=== PATIENT | female | born 1940 | race Hispanic/Latino ===

== ENCOUNTER 2017-05-11 12:35 | Inpatient (IN) | payer MEDICARE ==
[2017-05-11 12:56] LABS: Anion Gap 3 mmol/L (-14-95); pH (Venous) 7.533 (7.35-7.45)
[2017-05-11] MEDS ORDERED: Magnesium Sulfate 2 GM/100 ML BAG ONE (13:08)
--- NOTE | 2017-05-11 13:20 | RAD ---
PORTABLE CHEST 1 VIEW: DATE: 05/11/17. TIME: 12:28 p.m. HISTORY: Shortness of breath, weakness, loss of appetite, diabetes, COPD. FINDINGS: Comparison is made with the exams of 10/26/16, 12/25/15, and 10/08/15. The heart size is normal. The lungs are expanded with stable chronic changes. No focal areas of con solidation, pneumothorax, romana pulmonary edema, or pleural effusions are seen. IMPRESSION: No radiographic evidence of acute cardiopulmonary process. POS: JENIFERH
[2017-05-11 13:42] LABS: #Basophils 0.1 thou/uL (0.0-0.2); #Eosinphils 0.1 thou/uL (0.0-0.7); %Basophils 0.4 % (0.0-1.0); %Eosinophils 0.4 % (0.0-10.0); %Lymphocytes 15.5 % (21.0-51.0); %Monocytes 7.8 % (0.0-10.0); Hematocrit 32.2 % (36.0-47.0); Mean Platelet Volume 8.8 fL (7.4-10.4); Red Blood Cell (RBC) Count 3.18 mill/uL (4.20-5.40); White Blood Cell (WBC) Count 13.2 thou/uL (4.8-10.8)
[2017-05-11 13:47] LABS: Prothrombin Time 12.8 SEC (12.0-14.7)
[2017-05-11 14:01] LABS: ALT (SGPT) 9 U/L (8-55); AST (SGOT) 24 U/L (5-34); Alkaline Phosphatase 76 U/L (40-150); Anion Gap 13 mmol/L (10-20); BUN (Urea Nitrogen) 11 mg/dL (9.8-20.1); Bilirubin, Total 0.4 mg/dL (0.2-1.2); Calc. Creatinine Clearance 0 mL/min (70-130); Calcium 9.7 mg/dL (7.8-10.44); Carbon Dioxide 34 mmol/L (23-31); Chloride 82 mmol/L (98-107); Estimated GFR-MDRD Greater than 90; Globulin 3.4 g/dL (2.4-3.5); Protein, Total 7.3 g/dL (6.0-8.3)
[2017-05-11 14:06] LABS: Troponin I Less than 0.010 ng/mL (< 0.028)
--- NOTE | 2017-05-11 15:25 | CT ---
CTA CHEST WITH 3D VOLUME RENDERING: CLINICAL HISTORY: Dyspnea. FINDINGS: There is no evidence of a significant filling defect of the pulmonary arterial system. There is a gr ouping of reticulonodular/ground glass densities of the left upper lobe. Subpleural nodularity is se en at the posterior right upper lobe. There are a few linear areas of hypoattenuating artifact. The re is a wedge-shaped opacification of the left upper lobe, favoring scar. There is pulmonary emphyse ma. No effusion or pneumothorax. Scattered vascular disease is present, including coronary artery c alcium. There are small foci of hyperdensity of the spleen, nonspecific, limited by phase of enhance ment and small size. Scattered osseous degenerative changes are present. IMPRESSION: 1. No large central pulmonary embolus. 2. Scattered nodularity of the pulmonary parenchyma bilaterally, which could be on the basis of atyp ical pneumonia. Given nodularity, underlying neoplastic process cannot be excluded and, therefore, s hort-term followup is recommended to confirm resolution. This may be performed at 2 to 3 months. 3. Pulmonary emphysema. POS: TINO
[2017-05-11 16:56] LABS: Troponin I Less than 0.010 ng/mL (< 0.028)
[2017-05-11] MEDS ORDERED: ISOVUE-370 76%-LOCM 1 ML ONE (17:04)
[2017-05-11 17:07] LABS: Bacteria/HPF 4+ HPF (None Seen); Bilirubin Negative (Negative); Blood, Urine Trace (Negative); Glucose, Urine (Dipstick) Negative (Negative); Ketone, Urine Negative (Negative); Nitrite Positive (Negative); Protein, Urine (Dipstick) Negative (Neg-Trace); RBC/HPF 0-3 HPF (0-3); Squamous Epithelial None Seen HPF (0-3); Urobilinogen 0.2 mg/dL (0.2-1.0)
[2017-05-11 17:18] LABS: Hyaline Casts/LPF 0-3 HYALINE CAST LPF (0-3 Hyaline)
[2017-05-11 19:40] LABS: Troponin I Less than 0.010 ng/mL (< 0.028)
[2017-05-11 20:44] VITALS: BMI 24.2
[2017-05-11] MEDS ORDERED: Ondansetron ODT 4 MG TAB PO PRN (21:51)
[2017-05-11] MEDS ORDERED: Dextrose 50% Abboject 50 ML SYRINGE SLOW IVP PRN (21:51)
[2017-05-11] MEDS ORDERED: Dextrose 5% in Water 1,000 ML IV PRN (21:51)
[2017-05-11] MEDS ORDERED: HumaLOG 300 UNITS/3 ML VIAL SC PRN ×2 (21:51)
[2017-05-11] MEDS ORDERED: Sodium Chloride 0.9% 1,000 ML IV SCH (21:51)
[2017-05-11] MEDS ORDERED: Ondansetron HCl/PF 4 MG/2 ML Vial IVP PRN (21:51)
[2017-05-11] MEDS ORDERED: Insulin Detemir 100 UNITS/ML 20 UNITS in Pre-Filled Syringe 1 EACH SC SCH (22:00)
[2017-05-11] MEDS: Acetaminophen 325 MG TAB PO PRN (22:11)
[2017-05-11 22:58] LABS: Anion Gap 10 mmol/L (10-20); BUN (Urea Nitrogen) 11 mg/dL (9.8-20.1); Calc. Creatinine Clearance 74 mL/min (70-130); Calcium 9.1 mg/dL (7.8-10.44); Carbon Dioxide 37 mmol/L (23-31); Chloride 85 mmol/L (98-107); Estimated GFR-MDRD Greater than 90
[2017-05-11 23:03] LABS: Troponin I Less than 0.010 ng/mL (< 0.028)
[2017-05-12 00:01] LABS: Osmolality, Urine 161 mOsm/kg (300-900)
[2017-05-12 00:12] LABS: Sodium, Urine Less than 20 mmol/L (Not Available)
--- NOTE | 2017-05-12 01:29 | HP-2 ---
1CODE STATUS: FULL. PRIMARY CARE PHYSICIAN: Kosta Mcpherson MD ATTENDING: Easton Espino MD RESIDENT: Mar Mcpherson MD HISTORIAN: Patient, , and daughter. SPECIALIST: Dr. Sharp of Pulmonology. CHIEF COMPLAINT: Not feeling well. 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 Per the patient's for the past 3 days, she has just been weak, not been herself, shaky, and has had decreased appetite. reports that over the past few days, the patient has also been using her albuterol inhaler more frequently. Per previous discharge summary in November with hospital followup at our clinic, the patient was prescribed Brovana; however, states that they still have not picked this up due to financial reasons. The patient is typically on 2 liters nasal cannula at baseline, however, has had progressive worsening of shortness of breath and was found to be hypoxic at 67% on 2 liters in the emergency department. The patient denies any fevers, nausea, vomiting, diarrhea , chest pain, headache, or dysuria; however, she does note a nonproductive cough. The patient has had multiple hospitalizations due to COPD exacerbations with most recent one being in November of this year requiring BiPAP. states that she has required intubation for COPD onetime back in 2011. The patient and family deny any sick contacts and that she has been taking all of her medications as directed. In the ER, the patient received: 1. DuoNebs. 2. Magnesium sulfate 2 grams IV. 3. Solu-Medrol 80 mg IV. PAST MEDICAL HISTORY: 1. End-stage chronic obstructive pulmonary disease, on 2 liters via nasal cannula at home. 2. Insulin-dependent type 2 diabetes. 3. Chronic urinary retention with indwelling Scruggs catheter. 4. Chronic macrocytic anemia. 5. Hyperlipidemia. 6. Paroxysmal sinus tachycardia. PAST SURGICAL HISTORY: 1. Cholecystectomy. 2. Partial colectomy. 3. Abdominal hernia repair. 4. x3. ALLERGIES: No known drug allergies. MEDICATIONS: 1. Lantus 20 units subcu b.i.d. 2. Simvastatin 20 mg p.o. at bedtime. 3. Albuterol inhaler p.r.n. 4. Spiriva inhaler daily. 5. VESIcare 10 mg p.o. daily. FAMILY HISTORY: Noncontributory. SOCIAL HISTORY: The patient is known to be a former smoker with a 50-[id number]-epkr history but states she quit approximately 10 years ago. The patient denies any alcohol or illicit drug use and is currently and has three children. REVIEW OF SYSTEMS: A 12-point review of systems including general, eyes, ENT, respiratory, CV, GI, , skin, musculoskeletal, neuro, and psych are all negative except for pertinent positives mentioned in the HPI. PHYSICAL EXAMINATION: VITAL SIGNS: Blood pressure 130/72, pulse 112, respiratory rate 24, temperature 99.1, pulse ox 92% on 3 liters, current weight 54 kg. GENERAL: Alert, oriented x3, in no apparent distress. Well-developed, appropriate, interactive. EYES: PERRLA, EOMI. ENT: Tympanic membranes pearly hidalgo without bulging or erythema. Oropharynx within normal. NECK: Supple. No lymphadenopathy. CARDIOVASCULAR: Tachycardia, no murmurs or gallops. Radial pulses 2+, pedal pulses 2+. RESPIRATORY: Minimal air movement bilaterally. No retractions. No wheezing noted. ABDOMEN: Soft, nontender to palpation. Bowel sounds x4. EXTREMITIES: No cyanosis or edema. SKIN: No cyanosis or lesions. MUSCULOSKELETAL: Structure within normal, tone within normal. NEUROLOGIC: No focal deficits. Sensation within normal. PSYCHIATRIC: Appropriate. LABORATORY DATA: Hemoglobin 10.4, hematocrit 32.2, MCV 101. White count 13.2, platelets 329. Sodium 125, potassium 4.4, chloride 32, bicarbonate 34, BUN 11, creatinine 0.53 , glucose 129. Calcium 9.7, serum total protein 7.3, albumin 3.9, AST 24, ALT 9, alkaline phosphatase 76, total bilirubin 0.4. CK-MB 9.5, troponin less than 0.01. VBG showed pH of 7.53, pCO2 of 42.4, and a pO2 of 54.5. D-dimer 0.62. EKG shows sinus tachycardia. Chest x-ray shows hyperinflation with no acute process. CTA showed no pulmonary embolism with wedge-shaped opacification of the left upper lobe, likely a scar, as well as scattered nodularities of the pulmonary parenchyma bilaterally, could be indicative of atypical pneumonia. Given the nodularity, an underlying neoplasm etiology cannot be ruled out. ASSESSMENT AND PLAN: This is a 76-year-old female who presents with: 1. Acute on chronic hypercapnic and hypoxic respiratory failure secondary to chronic obstructive pulmonary disease exacerbation versus atypical pneumonia. The patient was given DuoNebs, magnesium sulfate, and Solu-Medrol in the ED. We will start the patient on scheduled DuoNebs and continue prednisone p.o. We will also add Levaquin. This is likely a chronic obstructive pulmonary disease exacerbation as the patient has end-stage chronic obstructive pulmonary disease with recurrent hospitalizations for exacerbations. In addition, the patient has been out of her Spiriva inhaler and has only been using her albuterol. As we are continuing DuoNeb treatments, we will hold her home Spiriva and start Brovana. Case management will be consulted for financial assistance for inhaler medication. 2. Sepsis secondary to acute on chronic hypercapnic and hypoxic respiratory failure versus urinary tract infection. The patient has a chronic indwelling Scruggs and UA had not been done. We will obtain UA, urine and blood cultures. The patient was septic with tachycardia at 112, tachypnea at 24, and an elevated white count of 13.2. We will treat with Levaquin and give 1 liter bolus of normal saline. 3. Hyponatremia. The patient with asymptomatic hyponatremia with a sodium of 125, likely secondary to polydipsia. The patient reports drinking about eight 20 ounce cups of water a day. We will obtain urine studies and give 1 liter bolus of normal saline. We will closely monitor sodium to ensure no rapid correction. We will fluid restrict to 1500 mL. 4. Elevated CK-MB. The patient is asymptomatic and denies any chest pain or palpitations. Does not have any acute changes on EKG. We will continue to trend and monitor. 5. Insulin-dependent type 2 diabetes. We will continue the patient on home regimen of Lantus 20 units b.i.d. We will place the patient on moderate sliding scale insulin with Accu-Cheks a.c. and at bedtime. 6. Chronic macrocytic anemia. The patient has had a previous workup which has been negative. 7. Hyperlipidemia. We will continue the patient's home simvastatin. 8. Diet: Consistent carbohydrates with fluid restriction at 1500 mL 9. Prophylaxis. Lovenox. 10. Code status: FULL. DISPOSITION: The patient admitted under inpatient status for anticipated length of stay greater than 2 midnights pending clinical course. Symptomatic medications will be provided. History and physical exam, as well as management, discussed with Dr. Espino. KAYLA
[2017-05-12 05:05] LABS: #Lymphocytes 1.3 thou/uL (1.20-3.40); #Monocytes 0.7 thou/uL (0.11-0.59); #Neutrophils 7.1 thou/uL (1.40-6.50); %Eosinophils 0.1 % (0.0-10.0); %Lymphocytes 13.9 % (21.0-51.0); %Monocytes 7.7 % (0.0-10.0); Hematocrit 31.9 % (36.0-47.0); Mean Platelet Volume 7.6 fL (7.4-10.4); White Blood Cell (WBC) Count 9.1 thou/uL (4.8-10.8)
[2017-05-12 05:14] LABS: Anion Gap 9 mmol/L (10-20); BUN (Urea Nitrogen) 11 mg/dL (9.8-20.1); Calc. Creatinine Clearance 74 mL/min (70-130); Calcium 8.8 mg/dL (7.8-10.44); Carbon Dioxide 35 mmol/L (23-31); Chloride 89 mmol/L (98-107); Estimated GFR-MDRD Greater than 90
[2017-05-12] MEDS: Acetaminophen 325 MG TAB PO PRN (06:14)
--- NOTE | 2017-05-12 06:20 | HP ---
CHIEF COMPLAINT: Not feeling well. HISTORY OF PRESENT ILLNESS: This is a 76-year-old female with past history of COPD who presents with 3-day history of feeling weak, decreased appetite with worsening shortness of breath and cough for which she came into the ED. In the ED, she was found to be in mild respiratory distress and given nebs, Solu- Medrol and magnesium and subsequently admitted to our service. Currently, she is still slightly short of breath and feels improved. She denies chest pain, headaches, vision changes, fever, but does endorse some chills. Denies sick contacts and she does tell me that she ran out of one or two of her inhalers recently. REVIEW OF SYSTEMS: All other systems reviewed and are negative with the exception of some musculoskeletal back pain. PAST MEDICAL HISTORY: Significant for COPD, chronic urinary retention with indwelling Scruggs, insulin-dependent diabetes mellitus, hyperlipidemia, anemia, solitary pulmonary nodule. PAST SURGICAL HISTORY: Cholecystectomy, partial colectomy. ALLERGIES: No known drug allergies. FAMILY HISTORY: Noncontributory. SOCIAL HISTORY: She has a [id number] history. Denies ethanol or drug use. MEDICATIONS: Lantus, simvastatin, ProAir, Spiriva, VESIcare, and she ran out Brovana. PHYSICAL EXAMINATION: VITAL SIGNS: Most recent, temperature 98.6, pulse 103, respirations 18, O2 sat 96% on 2 liters, blood pressure 112/58. GENERAL: She is in no acute distress and is conversant in sentences. HEENT: Eyes without icterus or injection. Pupils equal, round, reactive to light. Normal pinna appears. Nares patent. Moist mucous membranes. Nasal cannula in place. NECK: Trachea midline and mobile. CARDIOVASCULAR: Tachycardic, regular rhythm without murmur. No peripheral edema. LUNGS: She has slightly increased work of breathing with mild accessory muscle use. Most significantly, she has very poor air movement, minimal crackles in the left base. No wheezing. GASTROINTESTINAL: Bowel sounds positive. Nontender to palpation. No palpable organomegaly. Previous scar well-appearing. GENITOURINARY: Scruggs catheter in place. MUSCULOSKELETAL: Without obvious deformity, contracture or fracture or joint swelling. SKIN: Warm and dry with some senile purpura. NEUROLOGIC: Cranial nerves II-XII intact and symmetric. Motor 5/5 in upper and lower extremities. Sensation by light touch throughout. PSYCHIATRIC: Alert and oriented x2. She is unsure of the year. Mood and affect appropriate for current medical conditions. LABORATORY DATA: White count 13.2, hemoglobin 10.4, platelets of 329. D-dimer 0.62. A pH on blood gas 7.533, CO2 of 42. Chemistry: Sodium 125, potassium 4.4, chloride 82, bicarbonate 34, creatinine 0.53, glucose 129. LFTs normal. Troponin negative x2. Chest x-ray with no radiographic evidence of acute pulmonary process. CT chest and thorax with no large central pulmonary embolus ; scattered nodularity of the pulmonary parenchyma bilaterally, which could be on the basis of atypical pneumonia given nodularity underlying neoplastic process cannot be excluded and therefore short term followup is recommended to confirm resolution is may be performed in 2 to 3 months. Pulmonary emphysema. ASSESSMENT AND PLAN: This is a 76-year-old female with: 1. Acute hypoxic respiratory failure secondary to chronic obstructive pulmonary disease exacerbation. We will continue steroids, DuoNebs and home control medications, titrate O2 denies 94%. Repeat blood gas in the morning. 2. Diabetes mellitus, sliding scale while she is in house. 3. Hyperlipidemia. Continue simvastatin. 4. Solitary pulmonary nodule/changes on the CT scan, may follow up with Pulmonology who is seeing her as an outpatient. 5. Anemia appears to be stable. Appropriate workup to be ordered. 6. Deep venous thrombosis prophylaxis with lovenox. 7. Gastrointestinal prophylaxis with diet. MTDD
[2017-05-12] MEDS ORDERED: Sodium Chloride 0.9% 1,000 ML IV SCH ×2 (06:30)
[2017-05-12] MEDS: Arformoterol 15 MCG/2 ML NEB NEB SCH ×2 (08:05→18:26)
--- NOTE | 2017-05-12 08:32 | PDOC.FM ---
- Subjective Subjective: Pt denies any acute events overnight. Patient denies any fevers or chills. Says she is having some back pain this morning and wants to sit up in the chair. Denies any nausea, vomiting, diarrhea, constipation. Denies any chest pain. Denies SOB. Pt doing better from yesterday. - Objective MAR Reviewed: Yes Vital Signs & Weight: Vital Signs (12 hours) Temp Pulse Resp BP Pulse Ox 05/12/17 07:21 100 05/12/17 07:17 111 H 20 94 L 05/12/17 04:00 98.0 F 110 H 20 97/49 L 100 05/12/17 01:58 104 H 18 100 05/12/17 00:00 98.2 F 100 18 109/54 L 99 05/11/17 23:17 96 18 99 05/11/17 22:44 99 05/11/17 21:51 99 Weight Weight 53.977 kg I&O: 05/11/17 05/12/17 05/13/17 06:59 06:59 06:59 Intake Total 1800 Output Total 1000 Balance 800 Result Diagrams: 05/12/17 04:53 05/12/17 04:53 EKG Reviewed by me: Yes (sinus tachycardia) Radiology Reviewed by me: Yes Radiology: CT chest: No PE, wedge-shaped opac of LT upper lobe, scattered nodularity of pulm parenchyma bilaterally <Tai Dillard - Last Filed: 05/12/17 08:30> - Objective Vital Signs & Weight: Vital Signs (12 hours) Temp Pulse Resp BP Pulse Ox 05/12/17 10:48 112 H 20 05/12/17 07:21 100 05/12/17 07:17 111 H 20 94 L 05/12/17 04:00 98.0 F 110 H 20 97/49 L 100 05/12/17 01:58 104 H 18 100 05/12/17 00:00 98.2 F 100 18 109/54 L 99 05/11/17 23:17 96 18 99 Weight Weight 53.977 kg I&O: 05/11/17 05/12/17 05/13/17 06:59 06:59 06:59 Intake Total 1800 Output Total 1000 Balance 800 Result Diagrams: 05/12/17 04:53 05/12/17 04:53 <Ori Anguiano - Last Filed: 05/12/17 11:17> Phys Exam - Physical Examination HEENT: PERRLA Neck: no nodes, no JVD, supple Respiratory: no wheezing, no rales, no rhonchi Decreased breath sounds Cardiovascular: RRR, no significant murmur, no rub Gastrointestinal: soft, non-tender, no distention, positive bowel sounds Musculoskeletal: no edema, pulses present Neurological: non-focal, normal sensation Psychiatric: normal affect, A&O x 3 Skin: no rash <Tai Dillard - Last Filed: 05/12/17 08:30> Dx/Plan (1) UTI (urinary tract infection) due to urinary indwelling See catheter Code(s): T83.511A - I/I REACT D/T INDWELLING URETHRAL CATHETER, INIT; N39.0 - URINARY TRACT INFECTION, SITE NOT SPECIFIED Status: Acute Plan: Urine cx grew out Proteus. Likely related to see catheter -Will switch out see. -Levaquin for COPD is also adquate for coverage at this time. Will await sensitivities and adjust abx as needed. -Pt afebrile -Blood cx-NGTD (2) Acute and chronic respiratory failure with hypercapnia Code(s): J96.22 - ACUTE AND CHRONIC RESPIRATORY FAILURE WITH HYPERCAPNIA Status: Acute Plan: Requiring O2 at this time. Requiring 3 L. will decrease it as pt is oversaturated. -Duonebs antonella and prn for SOB -Levaquin and Prednisone for COPD exacerbation. \ (3) Hyponatremia Code(s): E87.1 - HYPO-OSMOLALITY AND HYPONATREMIA Status: Acute Plan: Getting NS bolus this morning -will continue NS@100 -Will continue to trend with daily BMP (4) COPD exacerbation Code(s): J44.1 - CHRONIC OBSTRUCTIVE PULMONARY DISEASE W (ACUTE) EXACERBATION Status: Acute Plan: -Duonebs antonella, Levaquin and Prednison -Started back on Brovana inhaler -Case managament consulted to help with finding financial assistance for Brovana inhaler on discharge (5) Chronic indwelling See catheter Code(s): Z92.89 - PERSONAL HISTORY OF OTHER MEDICAL TREATMENT Status: Chronic Plan: -Will switch out see catheter today. (6) IDDM (insulin dependent diabetes mellitus) Code(s): E11.9 - TYPE 2 DIABETES MELLITUS WITHOUT COMPLICATIONS; Z79.4 - TRANSFER STATION OPERATOR (CURRENT) USE OF INSULIN Status: Chronic Plan: Started on home regimen of 20u Lantus BID -Mild SSI and accuchecks AC/HS -Blood sugars under control at this time (7) Macrocytic anemia Code(s): D53.9 - NUTRITIONAL ANEMIA, UNSPECIFIED Status: Chronic Plan: Folate and B12 were WNL at previous hospitilizations. Will not repeat at this time. -Will continue to monitor. No acute blood loss and asx at this time. (8) Sinus tachycardia Code(s): R00.0 - TACHYCARDIA, UNSPECIFIED Status: Chronic Plan: Has hx of sinus tachycardia noted in past visits -On tele. Will continue to monitor -BP a little low could be causing tachy. Fluid bolus x1 this Am (9) Generalized weakness Code(s): R53.1 - WEAKNESS Status: Acute Plan: PT/OT consulted and will assess and tx -Likely may need a stint of rehab or snf. Case management consulted and will help with placement <Tai Dillard - Last Filed: 05/12/17 08:30> Attending Addendum - Attending Addendum I personally evaluated the patient and discussed the management with Dr. Dillard. I agree with the History, Examination, Assessment and Plan documented above with any addition or exceptions noted below. Patient continues to report feeling weak. She has multiple active conditions that could be causing this. She has evidence of infiltrate on lung CT, and this may be causing a COPD exacerbation that we are in the process of treating. She has history of a lung nodule being followed by Pulm that could be complicating picture, though CT does not show evidence of that .Will need repeat imaging once her infiltrate resolves. She has also been found to have a catheter associated UTI due to Proteus infection that is a result of her chronic outpatient indwelling see catheter. We will change that catheter today. Finally, patient having hyponatremia and labs point to a hypovolemic hypoosmolar hyponatremia. We are giving her gentle fluids and will trend to ensure a non rapid correction. Expect several day hospitalization. <Ori Anguiano - Last Filed: 05/12/17 11:17>
[2017-05-12] MEDS ORDERED: FLU VACC TS2017-18 (>65YR) 0.5 ML SYRINGE IM ONE (09:00)
[2017-05-12] MEDS: predniSONE 20 MG TAB PO SCH (09:46)
[2017-05-12] MEDS: TROSPIUM 20 MG TABLET PO SCH ×2 (09:46→21:11)
[2017-05-12] MEDS: Insulin Detemir 100 UNITS/ML 20 UNITS in Pre-Filled Syringe 1 EACH SC SCH (09:46)
[2017-05-12] MEDS: Enoxaparin Sodium 40 MG/0.4 ML SYRINGE SC SCH (09:47)
[2017-05-12] MEDS: Sodium Chloride 0.9% 1,000 ML IV SCH ×2 (10:43→23:54)
[2017-05-12] MEDS ORDERED: cefTRIAXone\\ROCEPHIN 1 GM in Sodium Chloride 0.9% 100 ML IVPB SCH (11:00)
[2017-05-12] MEDS ORDERED: cefTRIAXone\\ROCEPHIN 1 GM, Syringe 0.4 ML in Sterile Water 9.6 ML SLOW IVP SCH (11:00)
--- NOTE | 2017-05-12 14:27 | PQF ---
CLINICAL DOCUMENTATION IMPROVEMENT CLARIFICATION FORM: ICD-10 Updated PLEASE DO AN ADDENDUM TO THE PROGRESS NOTE WITH ANY DOCUMENTATION UPDATES OR ADDITIONS AND CARRY THROUGH TO DC SUMMARY. THANK YOU. DATE: 05/12 ATTN: DR. ANGELITA CONNER/ DR LORENZO CESPEDES Please exercise your independent, professional judgment in responding to the clarification form. Clinical indicators are provided on the bottom of this form for your review Please check appropriate box(s): [ ] Pneumonia secondary to (specify organism / underlying disease) [ ] Simple Pneumonia (community acquired - nosocomial) [ ] Pneumonia of unknown etiology [x] Other diagnosis COPD excacerbation [ ] Unable to determine [ ] Pneumonia RESOLVED [ ] Pneumonia RULED OUT For continuity of documentation, please document condition throughout progress notes and discharge summary. Thank You. CLINICAL INDICATORS - SIGNS / SYMPTOMS / LABS ER PRESENTATION 05/11: EVALUATION FOR SOB 02 SAT ON 2L: 67%, NRB PLACED : 100% SON NOTES PT HAS HAD GONZALEZ FOR PAST MONTH & HAS HAD TROUBLE BREATHING PHYSICIAN H&P DOCUMENTATION 05/11: ASSESSMENT /PLAN: 1. A/C HYPERCAPNIC/ HYPOXIC RESPIRATORY FAILURE 2/2 COPD EXACERBATION VS ATYPICAL PNEUMONIA ATTENDING PHYSICIAN ADDENDUM TO PN DATED 05/12: SHE HAS EVIDENCE OF INFILTRATE ON LUNG CT, & THIS MAY BE CAUSING A COPD EXACERBATION THAT WE ARE IN THE PROCESS OF TREATING. ....WILL NEED REPEAT IMAGING ONCE HER INFILTRATE RESOLVES CTA CHEST/THORAX 05/11: SCATTERED NODULARITY OF PULMONARY PARENCHYMA BILATERALLY, WHICH COULD BE BASIS OF ATYPICAL PNEUMONIA WBC: 13.2 (05/11, ADMIT) RISK FACTORS: ES COPD ON HOME 02 ACUTE ON CHRONIC RESPIRATORY FAILURE TREATMENTS: IV ANTIBIOTICS (LEVAQUIN 05/11 - PRESENT; ROCEPHIN STARTED 05/12) SUPPLEMENTAL OXYGEN (2-3L NC 05/11 - PRESENT) RESPIRATORY TREATMENTS (DUONEB 05/11 - PRESENT; BROVANA NEB 05/12 STARTED) THANK YOU! Danae (This form is maintained as a part of the permanent medical record) 2014 [employer]. All Rights Reserved Danae Montenegro RN, BSN [email or web address] Office: [phone] [facility]
--- NOTE | 2017-05-12 14:39 | PQF ---
CLINICAL DOCUMENTATION IMPROVEMENT CLARIFICATION FORM: ICD-10 Updated PLEASE DO AN ADDENDUM TO THE PROGRESS NOTE WITH ANY DOCUMENTATION UPDATES OR ADDITIONS AND CARRY THROUGH TO DC SUMMARY. THANK YOU. DATE: 05/12 ATTN: DR. ANGELITA CONNER/ DR. LORENZO CESPEDES Please exercise your independent, professional judgment in responding to the clarification form. Clinical indicators are provided on the bottom of this form for your review Please check appropriate box(s) to clarify if the following diagnosis has been ruled in or ruled out: SEPSIS [ x ] Ruled in diagnosis [ ] Continue to treat [ x ] Resolved [ ] Ruled out diagnosis [ ] Other diagnosis [ ] Unable to determine For continuity of documentation, please document condition throughout progress notes and discharge summary. Thank You. CLINICAL INDICATORS - SIGNS / SYMPTOMS / LABS PHYSICIAN H&P DOCUMENTATION 05/11: ASSESSMENT/PLAN: 2. SEPSIS 2/2 ACUTE HYPOXIC RESPIRATORY FAILURE 2/2 COPD EXACERBATION VS ATYPICAL PNEUMONIA. .... WILL ADD LEVAQUIN TO COVER FOR BOTH COPD & ATYPICAL PNEUMONIA NO FURTHER DOCUMENTATION OF SEPSIS ER PRESENTATION 05/11: WBC 13.2 HR: 109-114 RR: 23-28 SAT ON 2L NC: 67%, PLACED ON NRB: 100% RISK FACTORS: ACUTE HYPOXIC RESPIRATORY FAILURE COPD EXACERBATION VS ATYPICAL PNEUMONIA TREATMENTS: IV ANTIBIOTICS (IV LEVAQUIN 05/11 - PRESENT; IV ROCEPHIN STARTED 05/12) SUPPLEMENTAL OXYGEN (2-3L NC 05/11 - PRESENT) THANK YOU! Danae (This form is maintained as a part of the permanent medical record) 2014 [employer]. All Rights Reserved Danae Montenegro RN, BSN [email or web address] Office: [phone] [facility]
[2017-05-12 16:47] LABS: Anion Gap 11 mmol/L (10-20); BUN (Urea Nitrogen) 10 mg/dL (9.8-20.1); Calc. Creatinine Clearance 64 mL/min (70-130); Calcium 8.8 mg/dL (7.8-10.44); Carbon Dioxide 35 mmol/L (23-31); Chloride 95 mmol/L (98-107); Estimated GFR-MDRD Greater than 90
[2017-05-12 18:17] LABS: Bilirubin Negative (Negative); Blood, Urine Small (Negative); Glucose, Urine (Dipstick) Negative (Negative); Ketone, Urine Negative (Negative); Nitrite Negative (Negative); Protein, Urine (Dipstick) Negative (Neg-Trace); Urobilinogen 0.2 mg/dL (0.2-1.0)
[2017-05-12 18:28] LABS: Bacteria/HPF 1+ HPF (None Seen); Hyaline Casts/LPF 7-10 HYALINE CAST LPF (0-3 Hyaline); RBC/HPF 0-3 HPF (0-3); Squamous Epithelial None Seen HPF (0-3)
[2017-05-12] MEDS ORDERED: Simvastatin 20 MG TAB PO SCH (21:00)
[2017-05-12] MEDS ORDERED: Insulin Detemir 100 UNITS/ML 20 UNITS in Pre-Filled Syringe 1 EACH SC SCH (21:00)
[2017-05-13] MEDS: Acetaminophen 325 MG TAB PO PRN (05:25)
[2017-05-13 05:48] LABS: BUN (Urea Nitrogen) 9 mg/dL (9.8-20.1); Calc. Creatinine Clearance 84 mL/min (70-130); Calcium 8.3 mg/dL (7.8-10.44); Estimated GFR-MDRD Greater than 90
[2017-05-13 05:51] LABS: #Lymphocytes 1.6 thou/uL (1.20-3.40); #Neutrophils 6.3 thou/uL (1.40-6.50); %Basophils 0.1 % (0.0-1.0); %Eosinophils 0.4 % (0.0-10.0); %Lymphocytes 18.3 % (21.0-51.0); %Monocytes 10.7 % (0.0-10.0); Hematocrit 29.4 % (36.0-47.0); Mean Platelet Volume 7.2 fL (7.4-10.4); Red Blood Cell (RBC) Count 2.77 mill/uL (4.20-5.40)
[2017-05-13 05:57] LABS: Anion Gap 9 mmol/L (10-20); Carbon Dioxide 35 mmol/L (23-31); Chloride 97 mmol/L (98-107)
[2017-05-13] MEDS: Arformoterol 15 MCG/2 ML NEB NEB SCH (07:46)
[2017-05-13] MEDS: Insulin Detemir 100 UNITS/ML 20 UNITS in Pre-Filled Syringe 1 EACH SC SCH (08:36)
[2017-05-13] MEDS: TROSPIUM 20 MG TABLET PO SCH (08:36)
[2017-05-13] MEDS: Enoxaparin Sodium 40 MG/0.4 ML SYRINGE SC SCH (08:36)
[2017-05-13] MEDS: predniSONE 20 MG TAB PO SCH (08:37)
--- NOTE | 2017-05-13 08:50 | PDOC.FM ---
- Subjective Subjective: Pt still reports being weak this morning. States though she doesn't want to get up an walk. Talked to her about rehab and doesn't want to go to rehab. Says pain is being controlled. Denies any fevers or chills. Denies any acute events overnight. - Objective MAR Reviewed: Yes Vital Signs & Weight: Vital Signs (12 hours) Temp Pulse Resp BP Pulse Ox 05/13/17 07:46 97 05/13/17 07:45 110 H 16 05/13/17 07:32 97.1 F L 117 H 16 96 05/13/17 04:00 98.0 F 109 H 16 118/56 L 99 05/13/17 02:14 113 H 24 H 96 05/12/17 22:12 109 H 20 99 Weight Weight 54.885 kg I&O: 05/12/17 05/13/17 05/14/17 06:59 06:59 06:59 Intake Total 1800 3010 Output Total 1000 6750 Balance 800 -3740 Result Diagrams: 05/13/17 05:24 05/13/17 05:24 <Tai Dillard - Last Filed: 05/13/17 08:52> - Objective Vital Signs & Weight: Vital Signs (12 hours) Temp Pulse Resp BP Pulse Ox 05/13/17 07:46 97 05/13/17 07:45 110 H 16 05/13/17 07:32 97.1 F L 110 H 16 96 05/13/17 04:00 98.0 F 109 H 16 118/56 L 99 05/13/17 02:14 113 H 24 H 96 Weight Weight 54.885 kg I&O: 05/12/17 05/13/17 05/14/17 06:59 06:59 06:59 Intake Total 1800 3010 Output Total 1000 6750 Balance 800 -3740 Result Diagrams: 05/13/17 05:24 05/13/17 05:24 <Ori Anguiano - Last Filed: 05/13/17 11:48> Phys Exam - Physical Examination HEENT: moist MMs Neck: no nodes, no JVD, supple Respiratory: no rales, no rhonchi, wheezing present Cardiovascular: RRR, no significant murmur, no rub Gastrointestinal: soft, non-tender, no distention Musculoskeletal: no edema, pulses present Decreased strength Neurological: non-focal, normal sensation Lymphatic: no nodes Psychiatric: normal affect, A&O x 3 Skin: no rash, normal turgor <Tai Dillard - Last Filed: 05/13/17 08:52> Dx/Plan (1) UTI (urinary tract infection) due to urinary indwelling See catheter Code(s): T83.511A - I/I REACT D/T INDWELLING URETHRAL CATHETER, INIT; N39.0 - URINARY TRACT INFECTION, SITE NOT SPECIFIED Status: Acute Plan: Urine cx grew out Proteus. Sensitive to Levaquin tx Likely related to see catheter -Will switch out see. -Levaquin for COPD is also adquate for coverage at this time. -Pt afebrile -Blood cx-NGTD -WBC improved. Likely ready for discharge at this time from a medical standpoint (2) Acute and chronic respiratory failure with hypercapnia Code(s): J96.22 - ACUTE AND CHRONIC RESPIRATORY FAILURE WITH HYPERCAPNIA Status: Resolved Plan: Due to COPD excacerbation w/ possible atypical pneumonia Requiring 2 L of O2 at this time. Pt uses oxygen at home is at baseline. -Duonebs antonella and prn for SOB -Levaquin and Prednisone for COPD exacerbation. -Switched to PO levaquin at this time. (3) Hyponatremia Code(s): E87.1 - HYPO-OSMOLALITY AND HYPONATREMIA Status: Acute Plan: Getting NS bolus this morning -will continue NS@100 -Will continue to trend with daily BMP (4) COPD exacerbation Code(s): J44.1 - CHRONIC OBSTRUCTIVE PULMONARY DISEASE W (ACUTE) EXACERBATION Status: Acute Plan: -Duonebs antonella, Levaquin and Prednison -Started back on Brovana inhaler -Case managament consulted to help with finding financial assistance for Brovana inhaler on discharge (5) Chronic indwelling See catheter Code(s): Z92.89 - PERSONAL HISTORY OF OTHER MEDICAL TREATMENT Status: Chronic Plan: -see catheter switched out yesterday. -Will follow up with urology outpt (6) IDDM (insulin dependent diabetes mellitus) Code(s): E11.9 - TYPE 2 DIABETES MELLITUS WITHOUT COMPLICATIONS; Z79.4 - DETENTION (CURRENT) USE OF INSULIN Status: Chronic Plan: Started on home regimen of 20u Lantus BID -Mild SSI and accuchecks AC/HS -Blood sugars under control at this time (7) Macrocytic anemia Code(s): D53.9 - NUTRITIONAL ANEMIA, UNSPECIFIED Status: Chronic Plan: Folate and B12 were WNL at previous hospitilizations. Will not repeat at this time. -Will continue to monitor. No acute blood loss and asx at this time. (8) Sinus tachycardia Code(s): R00.0 - TACHYCARDIA, UNSPECIFIED Status: Chronic Plan: Has hx of sinus tachycardia noted in past visits -On tele. Will continue to monitor -BP a little low could be causing tachy. Fluid bolus x1 yesterday. -Pt still having sinus tachycardia. having no symptoms at this time (9) Generalized weakness Code(s): R53.1 - WEAKNESS Status: Acute Plan: PT/OT consulted and will assess and tx -Likely may need a stint of rehab or penitentiary. Case management consulted and will help with placement -Pt does not want rehab. Wants to go home with home health w/ PT/OT. Pt says she wont walk. -Pt can be discharged at this time with home health. Will likely not be compliant with PT/OT and the proper tx to help with weakness <Tai Dillard - Last Filed: 05/13/17 08:52> Attending Addendum - Attending Addendum I personally evaluated the patient and discussed the management with Dr. Dillard. I agree with the History, Examination, Assessment and Plan documented above with any addition or exceptions noted below. Patient doing better today. Reports no shortness of breath and her sats are equal to her home baseline. She also had see catheter replaced and has no complaints of pain. She is being treated with Levaquin and steroids for COPD exacerbation and UTI 2/2 proteus. She continues to feel weak, though she refuses consideration of SNF versus rehab placement. PT recs included home with home health to which the patient is agreeable. We are currently not doing any therapeutics that require hospitalization. We will attempt once more to talk her into short term rehab, but if she declines she will be discharged home. She understands the need to work with therapy to increase conditioning and repeats back that she knows she needs to work with therapy if discharged home. <Ori Anguiano - Last Filed: 05/13/17 11:48>
[2017-05-13] MEDS ORDERED: Bisacodyl 5 MG TAB PO ONE (11:48)
[2017-05-13 12:28] VITALS: TEMP 98.6
[2017-05-13] MEDS ORDERED: Bisacodyl 5 MG TAB PO PRN (12:30)
[2017-05-13 15:47] VITALS: BP 162/65
--- NOTE | 2017-05-18 17:48 | PQF ---
ALVARO ROBERTO JASON MD *r* [id number] [id number] CLINICAL DOCUMENTATION CLARIFICATION FORM: POST DISCHARGE IF QUERY RECEIVED VIA FAX........ PLEASE DOCUMENT YOUR RESPONSE BELOW FAX RESPONSE BACK TO DATE: 05/18/17 ATTN: Dr Oliveros Please exercise your independent, professional judgment in responding to the clarification form. Clinical indicators are provided on the bottom of this form for your review ___ Final Diagnosis on the Pathology report: No Growth ___ Progress Notes indicate: Proteus from urine culture. Clarification of Pathology report: Please check appropriate box(s): [ ] Agree w the pathology finding of: [ ] Other explanation of pathology findings (please specify) [ ] Other diagnosis [ X ] Unable to determine- if sample was recollected after initiation of antibiotic therapy, there would be no way to know whether there was true growth in first collection, as the no growth in second sample could be due to antibiotics received before it was administered. For continuity of documentation, please document condition throughout progress notes and discharge summary. Thank You. CLINICAL INDICATORS - SIGNS/ SYMPTOMS / LABS Initial urine culture that was done, Microbiology says it was likely contaminated - and recommended it be recollected. It was recollected and it resulted in no growth per pathology report. RISK FACTORS TREATMENTS SIGNATURE/DATE Ori Oliveros MD 05/25/17 MTDD
== END 2017-05-13 15:03 | disposition home or self-care (01) | DRG 698 ==
LOC: ERS 12:35 → 2NO 18:25
PROVIDERS: ADMIT Student in an Organized Health Care Education/Training Program; ATTEND Student in an Organized Health Care Education/Training Program
DX: T83.511A Infection and inflammatory reaction due to indwelling urethral catheter, initial encounter (principal); A41.9 Sepsis, unspecified organism; J96.21 Acute and chronic respiratory failure with hypoxia; R65.20 Severe sepsis without septic shock; J44.1 Chronic obstructive pulmonary disease with (acute) exacerbation; E87.1 Hypo-osmolality and hyponatremia; E11.9 Type 2 diabetes mellitus without complications; B96.4 Proteus (mirabilis) (morganii) as the cause of diseases classified elsewhere; J96.22 Acute and chronic respiratory failure with hypercapnia; N39.0 Urinary tract infection, site not specified; D64.9 Anemia, unspecified; Z99.81 Dependence on supplemental oxygen; E78.5 Hyperlipidemia, unspecified; R33.9 Retention of urine, unspecified; Z96.0 Presence of urogenital implants; Z79.4 Long term (current) use of insulin; R91.1 Solitary pulmonary nodule; Z79.51 Long term (current) use of inhaled steroids; Z87.891 Personal history of nicotine dependence; R53.1 Weakness; R00.0 Tachycardia, unspecified
CPT/HCPCS: 36415; 36416; 71010; 71275; 80048; 80053; 81001; 81003; 81015; 82330; 82553; 82803; 83880; 83930; 83935; 84300; 84443; 84484; 85025; 85379; 85610; 85730; 87040; 87077; 87086; 87186; 93005; 94640; 94760; 96365; 96375; A4216; G8978-GP-CJ; G8979-GP-CI; G8987-GO-CL; G8988-GO-CJ; J0696; J1650; J1815; J1956; J2920; J3475; J7506; J7620

== ENCOUNTER 2017-08-18 18:45 | Inpatient (IN) | payer MEDICARE ==
[2017-08-18 19:34] LABS: #Basophils 0.1 thou/uL (0.0-0.2); #Eosinphils 0.2 thou/uL (0.0-0.7); #Lymphocytes 1.7 thou/uL (1.20-3.40); #Monocytes 0.7 thou/uL (0.11-0.59); #Neutrophils 5.6 thou/uL (1.40-6.50); %Basophils 0.6 % (0.0-1.0); %Eosinophils 1.9 % (0.0-10.0); %Lymphocytes 20.8 % (21.0-51.0); %Monocytes 8.4 % (0.0-10.0); %Neutrophils 68.3 % (42.0-75.0); Hemoglobin 8.4 g/dL (12.0-16.0); Mean Corpuscular HGB CONC 29.7 g/dL (32.0-36.0); Mean Corpuscular Hemoglobin 30.7 pg (27.0-31.0); Mean Platelet Volume 7.3 fL (7.4-10.4); Platelet Count 283 thou/uL (130-400); RBC Distribution Width 15.3 % (11.5-14.5); Red Blood Cell (RBC) Count 2.73 mill/uL (4.20-5.40); White Blood Cell (WBC) Count 8.2 thou/uL (4.8-10.8)
[2017-08-18 19:49] LABS: Anisocytosis SLIGHT = 6-15 cells (100X) (0-5/hpf); Basophilic Stippling SLIGHT = 1-2 cells (100X) (None Seen); MDiff Complete? YES; PLT Morphology Comment Appears Adequate; Polychromasia SLIGHT = 2-3 cells (100X) (0-2/hpf); Tear Drops SLIGHT = 2-5 cells (100X) (0-1/hpf)
[2017-08-18 19:55] LABS: ALT (SGPT) Less than 7 U/L (8-55); AST (SGOT) 12 U/L (5-34); Albumin 3.6 g/dL (3.4-4.8); Alkaline Phosphatase 65 U/L (40-150); Anion Gap 10 mmol/L (10-20); BUN (Urea Nitrogen) 9 mg/dL (9.8-20.1); Bilirubin, Total Less than 0.2 mg/dL (0.2-1.2); CK (CPK) 77 U/L (29-168); Calc. Creatinine Clearance 0 mL/min (70-130); Calcium 8.8 mg/dL (7.8-10.44); Carbon Dioxide 34 mmol/L (23-31); Chloride 92 mmol/L (98-107); Estimated GFR-MDRD Greater than 90; Globulin 3.1 g/dL (2.4-3.5); Glucose 159 mg/dL (83-110); Potassium 4.3 mmol/L (3.5-5.1); Protein, Total 6.7 g/dL (6.0-8.3); Sodium 132 mmol/L (136-145)
--- NOTE | 2017-08-18 19:56 | RAD ---
AP VIEW OF THE CHEST 08/18/17 INDICATION: Weakness. FINDINGS: No acute abnormality. Chronic lung changes are stable to the comparison dated 05/11/17. Mild cardiome iker is stable. Chronic vascular changes are similar. IMPRESSION: No acute abnormality. POS: [facility]
[2017-08-18 19:59] LABS: CKMB 2.9 ng/mL (0-6.6); Troponin I Less than 0.010 ng/mL (< 0.028)
[2017-08-18 20:34] LABS: Bilirubin Negative (Negative); Blood, Urine Trace (Negative); Clarity CLEAR (Clear); Glucose, Urine (Dipstick) Negative (Negative); Leukocyte Small (Negative); Nitrite Positive (Negative); Protein, Urine (Dipstick) Trace mg/dL (Neg-Trace); Specific Gravity, Urine 1.018 (1.002-1.036); Urobilinogen 0.2 mg/dL (0.2-1.0); pH, Urine 5.5 (5.0-9.0)
[2017-08-18 20:37] LABS: Bacteria/HPF Rare-Few HPF (None Seen); Hyaline Casts/LPF 0-3 HYALINE CAST LPF (0-3 Hyaline); RBC/HPF 0-3 HPF (0-3); Squamous Epithelial None Seen HPF (0-3)
--- NOTE | 2017-08-18 21:09 | CT ---
HEAD CT WITHOUT CONTRAST 08/18/17 COMPARISON: 09/30/16 HISTORY: Generalized weakness. TECHNIQUE: Serial axial CT imaging at 5 mm intervals from vertex through skull base without contrast. FINDINGS: The imaged paranasal sinuses/mastoid air cells are well aerated. No displaced calvarial fracture is s een. There is atherosclerotic calcification of the cavernous carotid arteries. There is extensive periventricular deep and subcortical white matter hypodensity, evidence of small b owel disease, stable. No intracranial hemorrhage, midline shift or mass effect. IMPRESSION: Stable chronic findings as above. No intracranial hemorrhage seen. POS: [facility]
[2017-08-18] MEDS ORDERED: cefTRIAXone\\ROCEPHIN 2 GM in Sodium Chloride 0.9% 100 ML IVPB SCH (21:15)
--- NOTE | 2017-08-18 22:18 | PDOC.FPRHP ---
- History of Present Illness Chief Complaint: Confusion, Generalized weakness History of Present Illness: 77 yo female with history of COPD, sinus tachycardia, chronic urinary retention with indwelling catheter presents with confusion and tremor/weakness. Son and reportedly brought patient into ED today to be evaluated. Patient denies dysuria. Patient does endorse abdominal pain .Patient states she is able to perform ADL's normally without much assistance which includes bathing. She normally ambulates with minimal assistance. Much of history is unable to be obtained as patient is poor historian. Family was called but did not answer. Will attempt to speak with family tomorrow to better determine patient's baseline. ED Course: Patient given 2g rocephin in ED for UTI. - Allergies/Adverse Reactions Allergies Allergy/AdvReac Type Severity Reaction Status Date / Time No Known Drug Allergies Allergy Verified 08/19/17 06:53 - Home Medications Medication Instructions Recorded Confirmed Type Aspirin [Aspirin Chewable Tablet] 81 mg PO DAILY 12/23/15 08/20/17 History Albuterol Sulfate [Proair HFA] 8.5 gm INH PRN PRN 11/28/16 08/20/17 History Simvastatin 20 mg PO QPM 11/28/16 08/20/17 History Tiotropium Miller [Spiriva] 18 mcg INH DAILY 11/28/16 08/20/17 History Insulin Glargine,Hum.Rec.Anlog 20 unit SQ QAM 05/11/17 08/20/17 History [Lantus Solostar] Insulin Glargine,Hum.Rec.Anlog 20 unit SQ QPM 05/11/17 08/20/17 History [Lantus Solostar] Acetaminophen [Tylenol Regular 650 mg PO Q4H PRN tab 05/13/17 08/20/17 Rx Strength] Fluticasone/Salmeterol [Advair 1 inh IH BID #1 disk.w.dev 05/13/17 08/20/17 Rx Diskus 250/50] Mometasone/Formoterol 100/5 2 puff INH BID 08/20/17 08/20/17 History [Dulera 100 mcg/5 mcg Inhaler] Pioglitazone HCl [Pioglitazone HCl] 30 mg PO DAILY 08/20/17 08/20/17 History - History PMHx: Urinary retention with chronic indwelling catheter, Chronic UTI's, Severe muscle deconditioning, Sinus tachycardia, COPD, DM type II, Macrocytic anemia, Solitary pulmonary nodule, HLD, Chronic hypoxic hypercapneic respiratory failure PSHx: Cholecystectomy, Partial colectomy, abdominal hernia repair, C/S x3 FHx: Noncontributory Social: Past reports indicate that patient is known to be former smoker with a 50 pack year history but states she quit approximately 10 years ago. Patient denied any alcohol or illicit drug us at that time. She is currently and has three children. - Review of Systems General: denies: fever/chills Respiratory: denies: shortness of breath Cardiovascular: denies: chest pain Gastrointestinal: reports: abdominal pain (mid-abdominal pain) Genitourinary: denies: dysuria Musculoskeletal: reports: other (tremor/shakes) - Vital signs BP: 109/60 HR: 108 RR: 24 Tmax: 98.2 Pox: 100% on 2L Wt: 50 kg - Physical Exam Constitutional: NAD -Constitutional: Unknown mental status baseline at this time. Will have to speak with family to determine baseline. HEENT: normocephalic and atraumatic, EOMI Neck: supple Heart: RRR, no murmurs/rubs/gallops, pulses present -Lungs: Crackle in left upper lung anteriorly Abdomen: soft -Abdomen: Tender to palpation in epigastric region. Musculoskeletal: normal structure Neurological: no focal deficit Skin: no rash/lesions, capillary refill <2 seconds -Psychiatric: Poor judgment and insight FMR H&P: Results - Labs Result Diagrams: 08/19/17 04:23 08/19/17 04:23 Lab results: WBC 8.2 thou/uL (4.8-10.8) 08/18/17 19:22 Hgb 8.4 g/dL (12.0-16.0) L 08/18/17 19:22 Hct 28.2 % (36.0-47.0) L 08/18/17 19: MCV 103.0 fl (81.0-99.0) H 08/18/17 19:22 Plt Count 283 thou/uL (130-400) 08/18/17 19:22 Neutrophils % 68.3 % (42.0-75.0) 08/18/17 19:22 Sodium 132 mmol/L (136-145) L 08/18/17 19:22 Potassium 4.3 mmol/L (3.5-5.1) 08/18/17 19: Chloride 92 mmol/L (98-107) L 08/18/17 19: Carbon Dioxide 34 mmol/L (23-31) H 08/18/17 19: BUN 9 mg/dL (9.8-20.1) L 08/18/17: Creatinine 0.53 mg/dL (0.6-1.1) L 08/18/17: Glucose 159 mg/dL (83-110) H 08/18/17: Lactic Acid 0.7 mmol/L (0.5-2.2) 08/18/17: Calcium 8.8 mg/dL (7.8-10.44) 08/18/17: Total Bilirubin Less than 0.2 mg/dL (0.2-1.2) L 08/18/17: AST 12 U/L (5-34) 08/18/17: ALT Less than 7 U/L (8-55) L 08/18/17: Alkaline Phosphatase 65 U/L (40-150) 08/18/17: Creatine Kinase 77 U/L (29-168) 08/18/17: CK-MB (CK-2) 2.9 ng/mL (0-6.6) 08/18/17: Serum Total Protein 6.7 g/dL (6.0-8.3) 08/18/17: Albumin 3.6 g/dL (3.4-4.8) 08/18/17 19: Urine Ketones Negative mg/dL (Negative) 08/18/17 20:25 Urine Blood Trace (Negative) H 08/18/17 20:25 Urine Nitrite Positive (Negative) H 08/18/17 20:25 Ur Leukocyte Esterase Small (Negative) H 08/18/17 20:25 Urine RBC 0-3 HPF (0-3) 08/18/17 20:25 Urine WBC 7-10 HPF (0-3) H 08/18/17 20:25 Ur Squamous Epith Cells None Seen HPF (0-3) 08/18/17 20:25 Urine Bacteria Rare-Few HPF (None Seen) 08/18/17 20:25 Additional comment: CXR: No acute abnormality CT Brain: Stable chronic findings FMR H&P: A/P - Problem List (1) Encephalopathy Current Visit: No Status: Acute Code(s): G93.40 - ENCEPHALOPATHY, UNSPECIFIED (2) Generalized weakness Current Visit: No Status: Chronic Code(s): R53.1 - WEAKNESS (3) Physical deconditioning Current Visit: No Status: Chronic Code(s): R53.81 - OTHER MALAISE (4) COPD (chronic obstructive pulmonary disease) Current Visit: No Status: Acute Qualifiers: COPD type: COPD with acute exacerbation Qualified Code(s): J44.1 - Chronic obstructive pulmonary disease with (acute) exacerbation (5) Chronic indwelling See catheter Current Visit: No Status: Chronic Code(s): Z92.89 - PERSONAL HISTORY OF OTHER MEDICAL TREATMENT (6) Chronic respiratory failure with hypoxia Current Visit: No Status: Chronic Code(s): J96.11 - CHRONIC RESPIRATORY FAILURE WITH HYPOXIA (7) DM type 2 (diabetes mellitus, type 2) Current Visit: No Status: Chronic (8) Dyslipidemia Current Visit: No Status: Chronic Code(s): E78.5 - HYPERLIPIDEMIA, UNSPECIFIED (9) Pulmonary hypertension due to COPD Current Visit: No Status: Chronic Code(s): I27.2 - OTHER SECONDARY PULMONARY HYPERTENSION * DO NOT USE *; J44.9 - CHRONIC OBSTRUCTIVE PULMONARY DISEASE, UNSPECIFIED (10) Sinus tachycardia Current Visit: No Status: Chronic Code(s): R00.0 - TACHYCARDIA, UNSPECIFIED - Plan 1. Acute toxic metabolic encephalopathy - Per ED report, patient was brought to EMS for confusion and generalized weakness - Patient alert and oriented x3 during assessment, but appears confused - Uncertain etiology - Infection possible source; will continue to treat for presumed UTI based on UA with rocephin - May be due to delirium; uncertain of patient's baseline as she is poor historian and there is no family present to discuss baseline. Left voicemail for family to call us back regarding patient's most recent history and baseline mental status - No evidence of sepsis (patient's tachycardia, tachypnea and hypoxia are all chronic) - Will attempt to further assess baseline mental status when patient's family is present tomorrow - NPO until passes dysphagia screening - IVF if unable to tolerate PO - Cardiac enzymes negative - Fall precautions - Procalcitonin pending - WBC and LA wnl 2. UA with positive nitrates, trace LE, and few WBC's - May be UTI. Will continue to treat with Rocephin - Urine culture pending; adjust antibiotic regimen accordingly - Trend WBC - UA positive for leukocytes and nitrites - Patient has chronic indwelling see catheter for urinary retention, this was recently changed out 2 days ago - If cx grows out >19138 CFU, then this may be most likely source of AMS 3. Physical deconditioning - Patient has HH with PT, but records indicate that she is not always compliant with PT - PT/OT to evaluate and treat 4. Possible PUD - Patient with epigastric pain - Downtrending Hg and Hct - Hg 8.0 from 10 on prior admissions - FOBT pending - Iron studies pending - Antacid added to medication regimen 5. Chronic anemia - Acutely worsening - Hg downtrending from 10 to 8 over the course of several months - Usually macrocytic - B12 and folate have been checked recently and were wnl 5. COPD - Chronic, no acute changes - At baseline O2 requirement - Chronic CO2 retainer 6. Chronic indwelling see catheter 2/2 retention - Changed out 2 days ago - Possible UTI as stated above - Will treat with rocephin until cultures result 6. Chronic respiratory failure with hypoxia - At baseline O2 which is 3L 7. DM type II - Continue home medications - Mild SSI - ACHS accuchecks 8. HLD - Continue home medications 9. Sinus tachycardia - At baseline - EKG unchanged FMR H&P: Upper Level - Plan Date/Time: 08/18/17 [id number] I, Yaniv Pérez MD, have evaluated this patient and agree with findings/plan as outlined by software development intern resident. Pertinent changes/additions are listed here. 77 yo F pmhx COPD, sinus tachycardia, and chronic urinary retention with indwelling catheter presents with confusion and generalized weakness with subjective "shakiness" x 1 day. Per ER report, son and brought the patient in earlier to be evaluated as this is a change from her baseline. Patient denies alma-urethral pain/burning, back, or supra-pubic pain. No reports of fevers at home. Patient states she is able to perform ADL's normally without much assistance (eg, bathing) and normally ambulates around her home with minimal assistance. Apparently the patient's catheter was just changed 2 days ago. The patient is currently a poor historian and much of the history is unable to be obtained. PE: Gen: AAO x 2, NAD, appears hydrated CV: tachycardic, no m/g/r Lungs: diminished BS b/l, scattered wheezes, prolonged exp time, mildly labored , lips pursed Abd: mild tenderness with deep palpation to the epigastric region, +BS Ext: no c/c/e Neuro: drier tender naphthalene 2-12 grossly intact, no focal weakness, no tremor A/P: 1) Toxic metabolic encephalopathy 2/ #2 v. delirium: place in observation to medical. No evidence of sepsis at this time (patient's tachycardia, tachypnea, and hypoxia are all chronic). Unclear of patient's baseline mental status and unable to contact family/caregivers to discuss. Will attempt to further address with family and/or PCP in AM. Fall precautions in place. Monitor vitals. No need for sitter at this time. Keep NPO until passes bedside swallow. IVF if unable to tolerate PO. Cardiac enzymes negative and electrolytes all at baseline. CT head showed only stable chronic changes. 2) Possible UTI: UA positve for leukocytes and nitrites, send for culture and treat empirically with Rocephin. If cx grows out >02273 CFU then infection could certainly be the cause of patient's acute mental status change. See was recently replaced. 3) Possible PUD: Has had positive FOBT in hospital in the past, unclear if this has been followed up outpatient. Hemoglobin trending down over time. Patient does have epigastric tenderness. Will recheck FOBT and add antacid. Likely not the source of any acute issues. 4) Chronic COPD: at baseline O2 requirement, patient is chronic CO2 retainer 5) Chronic sinus tachycardia: EKG unchanged 6) T2DM: accuchecks ACHS, continue home medications 7) Physical conditioning: PT/OT. Pt has HH w/ PT already in place at home. Attending Addendum - Attending Addendum Date/Time: 08/18/17 [id number] I personally evaluated the patient and discussed the management with Dr. Brennan and Dr. Pérez I agree with the History, Examination, Assessment and Plan documented above with any addition or exceptions noted below. 77 yo female with multiple co-morbid conditions brought into the ER by family for weakness, confusion, and tremor. Patient poor historian. Not able to reach family. Unsure the patient's baseline. Able to answer questions however delayed responses. Confusion noted on exam. Afebrile. VS reviewed and at patient's baseline. Labs reviewed. Images reviewed. PE unchanged as documented above. A/P: Will place in obs. Possible delirium related to infection however other signs of infection such as WBC, LA, etc WNL. Also could just be patient's baseline. Not able to contact family/care givers to discuss. Will attempt to address with family and/or PCP. Will treat UA results as UTI based on last culture results. Send urine for culture. See has been replaced. IVFs if not tolerating PO. CE negative. Patient does not complain of anything on exam. Electrolytes baseline except Na+. Fluids have been given in ER. Will watch closely to monitor patient' s trends. H&H is actually lower than baseline, epigastric tenderness on exam. Will add FOBT to see if possibly related to GI issues. Add antacid. O2 demand has not changed due to H&H change. Remains stable on home O2 level. Max
[2017-08-18] MEDS ORDERED: Sodium Chloride 0.9% 1,000 ML IV SCH (23:09)
[2017-08-18 23:23] VITALS: BMI 22.2
[2017-08-19] MEDS ORDERED: Dextrose 5% in Water 1,000 ML IV PRN ×2 (02:28→20:11)
[2017-08-19] MEDS ORDERED: Dextrose 50% Abboject 50 ML SYRINGE SLOW IVP PRN (02:28)
[2017-08-19 05:11] LABS: #Basophils 0.1 thou/uL (0.0-0.2); #Eosinphils 0.1 thou/uL (0.0-0.7); #Lymphocytes 1.4 thou/uL (1.20-3.40); #Monocytes 1.3 thou/uL (0.11-0.59); #Neutrophils 11.1 thou/uL (1.40-6.50); %Basophils 0.8 % (0.0-1.0); %Eosinophils 0.8 % (0.0-10.0); %Lymphocytes 9.8 % (21.0-51.0); %Neutrophils 79.6 % (42.0-75.0); Hemoglobin 8.9 g/dL (12.0-16.0); Mean Corpuscular HGB CONC 27.2 g/dL (32.0-36.0); Mean Corpuscular Hemoglobin 28.4 pg (27.0-31.0); Mean Platelet Volume 7.9 fL (7.4-10.4); Platelet Count 272 thou/uL (130-400); RBC Distribution Width 15.2 % (11.5-14.5); Red Blood Cell (RBC) Count 3.15 mill/uL (4.20-5.40); White Blood Cell (WBC) Count 13.9 thou/uL (4.8-10.8)
[2017-08-19 05:26] LABS: BUN (Urea Nitrogen) 8 mg/dL (9.8-20.1); Calc. Creatinine Clearance 69 mL/min (70-130); Calcium 8.8 mg/dL (7.8-10.44); Estimated GFR-MDRD Greater than 90; Glucose 160 mg/dL (83-110); Iron 34 ug/dL (50-170); Iron Binding Capacity, Total 411 mcg/dL (265-497)
[2017-08-19 05:35] LABS: Chloride 94 mmol/L (98-107); Potassium 4.5 mmol/L (3.5-5.1); Sodium 138 mmol/L (136-145)
[2017-08-19] MEDS ORDERED: Albuterol Sulfate 2.5 mg/3 ml Neb NEB PRN (05:41)
[2017-08-19 06:15] LABS: Carbon Dioxide 37 mmol/L (23-31)
[2017-08-19] MEDS: Mometasone/Formoterol 120 PUFF INHALER INH SCH ×2 (06:51→19:35)
--- NOTE | 2017-08-19 06:57 | PDOC.FM ---
- Subjective Subjective: Pt very hard to wake up when in the room. Sternally rubbed her multiple times with not much response. Pt only A&Ox1. Pt had increased work of breathing. Was using her abdomen muscles to help breath. Pt very solmnolent. At this time we checked an ABG which showed ph 7.19 and CO2 117. Pt is known CO2 retainer and has had high CO2 retention in the past. This is higher than usual. At this time we will transfer pt to [facility]. - Objective MAR Reviewed: Yes Vital Signs & Weight: Vital Signs (12 hours) Temp Pulse Resp BP Pulse Ox 08/19/17 06:52 95 08/19/17 06:46 118 H 20 95 08/19/17 02:43 93 L 08/18/17 23:34 98.0 F 99 20 08/18/17 23:00 98.0 F 99 20 118/62 93 L Weight Weight 50 kg I&O: 08/17/17 08/18/17 08/19/17 06:59 06:59 06:59 Intake Total 600 Output Total 450 Balance 150 Result Diagrams: 08/19/17 04:23 08/19/17 04:23 Radiology Reviewed by me: Yes (CXR: No acute abnormality) <Tai Dillard - Last Filed: 08/19/17 08:58> - Objective Vital Signs & Weight: Vital Signs (12 hours) Temp Pulse Pulse Pulse Resp BP BP 08/19/17 08:00 98.0 F 106 H 16 08/19/17 07:43 107 H 109 H 113/68 107/48 L 08/19/17 07:33 98.0 F 106 H 16 08/19/17 06:52 08/19/17 06:46 118 H 20 08/19/17 02:43 08/18/17 23:34 98.0 F 99 20 BP Pulse Ox Pulse Ox Pulse Ox 08/19/17 08:00 08/19/17 07:43 100 100 08/19/17 07:33 97/62 100 08/19/17 06:52 95 08/19/17 06:46 95 08/19/17 02:43 93 L 08/18/17 23:34 Weight Weight 50 kg I&O: 08/18/17 08/19/17 08/20/17 06:59 06:59 06:59 Intake Total 600 Output Total 450 Balance 150 Result Diagrams: 08/19/17 04:23 08/19/17 04:23 <Dee Dee Quinonez - Last Filed: 08/19/17 11:06> Phys Exam - Physical Examination Pt appears to be solmnolent. Not able to arouse easily HEENT: PERRLA, moist MMs Neck: no nodes, supple, full ROM Respiratory: wheezing present mild rales Cardiovascular: RRR, no significant murmur, no rub Gastrointestinal: soft, positive bowel sounds mildly distended Musculoskeletal: no edema, pulses present Pt lethargic. Unable to follow commands at this time Lymphatic: no nodes Deviation from normal: A&Ox1 Skin: no rash, normal turgor <Tai Dillard - Last Filed: 08/19/17 08:58> Dx/Plan (1) COPD (chronic obstructive pulmonary disease) Status: Acute QualifierTitle: COPD type: COPD with acute exacerbation Qualified Code(s) : J44.1 - Chronic obstructive pulmonary disease with (acute) exacerbation (2) Encephalopathy Code(s): G93.40 - ENCEPHALOPATHY, UNSPECIFIED Status: Acute (3) Anemia Code(s): D64.9 - ANEMIA, UNSPECIFIED Status: Acute QualifierTitle: Anemia type: iron deficiency (4) UTI (urinary tract infection) due to urinary indwelling See catheter Code(s): T83.511A - I/I REACT D/T INDWELLING URETHRAL CATHETER, INIT; N39.0 - URINARY TRACT INFECTION, SITE NOT SPECIFIED Status: Acute (5) Weakness of both legs Code(s): M62.81 - MUSCLE WEAKNESS (GENERALIZED) Status: Acute (6) Chronic respiratory failure with hypoxia Code(s): J96.11 - CHRONIC RESPIRATORY FAILURE WITH HYPOXIA Status: Chronic (7) DM type 2 (diabetes mellitus, type 2) Status: Chronic (8) HLD (hyperlipidemia) Code(s): E78.5 - HYPERLIPIDEMIA, UNSPECIFIED Status: Chronic (9) Physical deconditioning Code(s): R53.81 - OTHER MALAISE Status: Chronic (10) Sinus tachycardia Code(s): R00.0 - TACHYCARDIA, UNSPECIFIED Status: Chronic - Plan Plan: Acute toxic metabolic encephalopathy - Per ED report, patient was brought to EMS for confusion and generalized weakness - Patient alert and oriented x3 during assessment upon admission. , but appears confused. Has since gotten more solmnolent. Not arousable easily. Likley due to CO2 retetntion. -Appearing to be due to COPD exacerbation at this time. Pt ABG ph 7.19. CO2 117. Likely an acute COPD excaberation at this time. Will transfer pt to [facility] at this time. She needs BIPAP. -Flu A/B negative - Infection possible source; will continue to treat for presumed UTI based on UA with rocephin - suspected delirium. will need to assess baseline with family when present - NPO until passes dysphagia screening - Cardiac enzymes negative - Fall precaution COPD excacerbation. - Pt has increased work of breathing this morning. Pt not very arousable. -ABG pH 7.19. CO2 117. This is more elevated compared to prior visits - At baseline O2 requirement -Will antonella brooks. Added steroids. On Rocephin for UTI. May consider switching for COPD exacerbation - Chronic CO2 retainer . UA with positive nitrates, trace LE, and few WBC's - May be UTI. Will continue to treat with Rocephin - Urine culture pending; adjust antibiotic regimen accordingly - Trend WBC- trending up. - UA positive for leukocytes and nitrites - Patient has chronic indwelling see catheter for urinary retention, this was recently changed out 2 days ago - If cx grows out >[id number] CFU, then this may be most likely source of AMS Physical deconditioning - Patient has HH with PT, but records indicate that she is not always compliant with PT - PT/OT to evaluate and treat Possible PUD - Patient with epigastric pain - Downtrending Hg and Hct - Hg 8.0 from 10 on prior admissions - FOBT pending - Iron studies pending - Antacid added to medication regimen Chronic anemia - Acutely worsening - Hg downtrending from 10 to 8 over the course of several months - Usually macrocytic - B12 and folate have been checked recently and were wnl -Iron low. Likely some iron deficiency. Will replace Chronic indwelling see catheter 2/2 retention - Changed out 2 days ago - Possible UTI as stated above - Will treat with rocephin until cultures result Chronic respiratory failure with hypoxia - At baseline O2 which is 3L DM type II - Continue home medications - Mild SSI - ACHS accuchecks HLD - Continue home medications Sinus tachycardia - At baseline - EKG unchanged <Tai Dillard - Last Filed: 08/19/17 08:58> Attending Addendum - Attending Addendum Date/Time: 08/19/17 [id number] I personally evaluated the patient and discussed the management with Dr. Dillard. I agree with the History, Examination, Assessment and Plan documented above with any addition or exceptions noted below. The patient was difficult to arouse and pt's pH was found to be 7.1. Pt transferred to [facility] and is on Bipap. Dr. Sharp has been consulted. The patient's antibiotics will be change from rocephin to levaquin which can cover both copd exacerbation and possible UTI. Cultures are pending. <Dee Dee Quinonez - Last Filed: 08/19/17 11:06>
[2017-08-19 06:58] LABS: Anion Gap 12 mmol/L (10-20)
[2017-08-19] MEDS ORDERED: Ipratropium Bromide 2.5 ml Neb NEB SCH (07:00)
[2017-08-19] MEDS ORDERED: Spiriva 18 MCG CAP (Box of 5 Caps) INH SCH (07:00)
[2017-08-19] MEDS: Enoxaparin Sodium 40 MG/0.4 ML SYRINGE SC SCH (08:07)
[2017-08-19] MEDS: Famotidine/PF 20 mg/2ml Vial SLOW IVP SCH ×2 (08:07→20:30)
[2017-08-19] MEDS: Sodium Chloride 0.9% 1,000 ML IV SCH ×2 (08:09→11:29)
[2017-08-19 08:34] LABS: Actual Bicarbonate (HCO3a) 43.8 mEq/L (22-26); Base Excess (BEa) 13.2 mEq/L (0 (+/-) 2.5); CO2 Tension 117.2 mmHg (35.0-45.0); Hematocrit-ABG 33.2 % (36.0-47.0); Hemoglobin (Hb) 8.2 g/dL (12.0-16.0); O2 Tension (PaO2) 70.5 mmHg (80.0-100.0); pH, Arterial 7.19 (7.35-7.45)
[2017-08-19 08:35] LABS: Calcium, Ionized 1.2 mmol/L (1.12-1.30); Puncture Site RR
--- NOTE | 2017-08-19 12:49 | CON ---
DATE OF CONSULTATION: 08/19/2017 REASON FOR CONSULTATION: Acute on chronic respiratory failure. HISTORY OF PRESENT ILLNESS: Gt is a 77-year-old female, who I have known for a number of years. She has very severe COPD and has had multiple episodes of respiratory failure in the past. She was admitted to the hospital last night by the Family Medicine Residency team. The information I have is taken from the history and physical, as the patient cannot verbalize with me at the current time and I do not see her around. She was basically weak and confused. Last night, she decompensated; this morning, she was found to be in respiratory discomfort with elevated pCO2 and was brought to the CCU and BiPAP has been initiated. PAST MEDICAL HISTORY: 1. Severe COPD. 2. Urinary retention. 3. Anemia. 4. Hyperlipidemia. 5. Insulin-dependent diabetes, but type 2. PAST SURGICAL HISTORY: and abdominal hernia repair. ALLERGIES: None. OUTPATIENT MEDICATIONS: She takes prednisone unknown dose, tiotropium 2 puffs daily, Zocor 20 mg nightly, simvastatin 20 mg daily, Lantus insulin, Advair Diskus 250/50 one puff b.i.d., aspirin 81 mg daily, ProAir 2 puffs as needed, and Tylenol as needed. SOCIAL HISTORY: A [id number]-[id number] history of smoking, quit about 11 years ago. Does not consume alcohol. Does not use illicit drugs. REVIEW OF SYSTEMS: Unobtainable secondary to the patient's altered mental status. PHYSICAL EXAMINATION: VITAL SIGNS: Temperature 98.0, pulse 104, respirations 18, O2 sat 93% on BiPAP. GENERAL: She is arousable, but cannot speak at this time. HEENT EXAM: Pupils are reactive. Sclerae are anicteric. Oropharynx clear. NECK: No JVD. LUNGS: Distant breath sounds bilaterally, without much in the way of wheezing. CARDIAC: S1 and S2 is regular without audible murmur. ABDOMEN: Soft and nontender. EXTREMITIES: No clubbing, cyanosis, or edema. LABORATORY DATA: Her chest x-ray demonstrates chronic interstitial changes. The x-ray does not look much different than back in April. Brain CT reviewed personally by myself shows no evidence of acute change. LABORATORY DATA: White blood cell count 13.8, hematocrit 32.8, platelet count 272. PH 7.19, pO2 of 117, pCO2 of 70. Sodium 138, potassium 4.5, chloride 94, CO2 of 37, BUN 8, creatinine 0.5, glucose 116. ASSESSMENT: 1. Severe chronic obstructive pulmonary disease with exacerbation. 2. Acute on chronic hypercapnic respiratory failure. 3. Overall failure to thrive. PLAN: She usually does reasonably well with BiPAP therapy. This has been started. She will continue on nebulization treatments, antibiotics, and steroids. I will recheck an ABG later this afternoon to see what direction she is going. I will speak with her when he is available. I would discourage intubation and mechanical ventilation, as she is probably near the end of her life. 70 minutes of time was spent performing this consultation. Of that 70 min, greater than 50% of the time was spent with the patient and/or on the patient's floor MTDD
[2017-08-19 18:04] LABS: Actual Bicarbonate (HCO3a) 41.5 mEq/L (22-26); Base Excess (BEa) 11.7 mEq/L (0 (+/-) 2.5); CO2 Tension 108.1 mmHg (35.0-45.0); Hematocrit-ABG 30.1 % (36.0-47.0); Hemoglobin (Hb) 7.5 g/dL (12.0-16.0); O2 Tension (PaO2) 113.7 mmHg (80.0-100.0)
[2017-08-19 18:05] LABS: Calcium, Ionized 1.2 mmol/L (1.12-1.30); Puncture Site LRA
[2017-08-19 18:06] LABS: ALV-art Gradient 107.675 (0-20)
[2017-08-19] MEDS ORDERED: Insulin Regular 300 UNITS/3 ML VIAL SC PRN (20:11)
[2017-08-19] MEDS ORDERED: Dextrose 50% Abboject 50 ML SYRINGE IVP PRN (20:11)
[2017-08-19] MEDS: Acetaminophen 325 MG TAB PO PRN (20:29)
[2017-08-19] MEDS: Simvastatin 20 MG TAB PO SCH (20:29)
[2017-08-19] MEDS: HumaLOG 300 UNITS/3 ML VIAL SC PRN (20:54)
[2017-08-19] MEDS ORDERED: cefTRIAXone\\ROCEPHIN 1 GM, Syringe 0.4 ML in Sterile Water 9.6 ML SLOW IVP SCH (21:00)
[2017-08-19] MEDS ORDERED: cefTRIAXone\\ROCEPHIN 1 GM in Sodium Chloride 0.9% 100 ML IVPB SCH (22:15)
[2017-08-19] MEDS ORDERED: Cyclobenzaprine 10 MG TAB PO SCH (23:00)
[2017-08-20] MEDS: Sodium Chloride 0.9% 1,000 ML IV SCH ×2 (04:17→14:04)
[2017-08-20] MEDS: Acetaminophen 325 MG TAB PO PRN ×3 (04:18→21:37)
[2017-08-20] MEDS: Mometasone/Formoterol 120 PUFF INHALER INH SCH ×2 (06:17→19:10)
--- NOTE | 2017-08-20 07:21 | PDOC.FM ---
- Subjective Subjective: Pt resting comfortably this morning with no specific complaints. She feels that her breathing has improved and denies SOB. There were no acute events over night. She was successfully weaned off of BiPAP last night and is doing well on NC - Objective Vital Signs & Weight: Vital Signs (12 hours) Temp Pulse Resp BP Pulse Ox 08/20/17 06:17 111 H 22 H 98 08/20/17 06:15 111 H 22 H 99 08/20/17 04:00 97.8 F 119 H 20 133/118 H 99 08/20/17 02:30 99 08/19/17 23:40 98.5 F 114 H 20 125/47 L 95 08/19/17 23:18 97 08/19/17 23:17 97 08/19/17 20:00 98.5 F 114 H 20 97 08/19/17 19:39 97 08/19/17 19:35 113 H 19 97 Weight Weight 52.163 kg I&O: 08/19/17 08/20/17 08/21/17 06:59 06:59 06:59 Intake Total 600 2960 Output Total 450 2300 Balance 150 660 Result Diagrams: 08/19/17 04:23 08/19/17 04:23 <Jose Recinos - Last Filed: 08/20/17 07:19> - Objective Vital Signs & Weight: Vital Signs (12 hours) Temp Pulse Resp BP Pulse Ox 08/20/17 09:41 103 H 22 H 98 08/20/17 08:00 98.2 F 103 H 22 H 98 08/20/17 07:25 98.2 F 119 H 22 H 124/74 100 08/20/17 06:17 111 H 22 H 98 08/20/17 06:15 111 H 22 H 99 08/20/17 04:00 97.8 F 119 H 20 133/118 H 99 08/20/17 02:30 99 08/19/17 23:40 98.5 F 114 H 20 125/47 L 95 08/19/17 23:18 97 08/19/17 23:17 97 Weight Weight 52.163 kg I&O: 08/19/17 08/20/17 08/21/17 06:59 06:59 06:59 Intake Total 600 2960 Output Total 450 2300 Balance 150 660 Result Diagrams: 08/19/17 04:23 02/23/18 04:23 <Dee Dee Quinonez - Last Filed: 08/20/17 11:10> Phys Exam - Physical Examination Constitutional: NAD HEENT: PERRLA, moist MMs Neck: no nodes Respiratory: wheezing present (Mild expiratory wheezing in all lung morales) Cardiovascular: RRR, no significant murmur Gastrointestinal: soft, non-tender Musculoskeletal: no edema Neurological: non-focal Psychiatric: normal affect Deviation from normal: A&O x2 is unsure of the year Skin: no rash <JorjeJose - Last Filed: 08/20/17 07:19> Dx/Plan (1) COPD exacerbation Code(s): J44.1 - CHRONIC OBSTRUCTIVE PULMONARY DISEASE W (ACUTE) EXACERBATION Status: Chronic (2) Encephalopathy Code(s): G93.40 - ENCEPHALOPATHY, UNSPECIFIED Status: Acute (3) UTI (urinary tract infection) due to urinary indwelling See catheter Code(s): T83.511A - I/I REACT D/T INDWELLING URETHRAL CATHETER, INIT; N39.0 - URINARY TRACT INFECTION, SITE NOT SPECIFIED Status: Chronic QualifierTitle: Indwelling urinary catheter type: indwelling urethral catheter (4) Anemia Code(s): D64.9 - ANEMIA, UNSPECIFIED Status: Chronic QualifierTitle: Anemia type: iron deficiency (5) Weakness of both legs Code(s): M62.81 - MUSCLE WEAKNESS (GENERALIZED) Status: Chronic (6) Chronic respiratory failure with hypoxia Code(s): J96.11 - CHRONIC RESPIRATORY FAILURE WITH HYPOXIA Status: Chronic (7) DM type 2 (diabetes mellitus, type 2) Status: Chronic (8) HLD (hyperlipidemia) Code(s): E78.5 - HYPERLIPIDEMIA, UNSPECIFIED Status: Chronic (9) Physical deconditioning Code(s): R53.81 - OTHER MALAISE Status: Chronic (10) Tachycardia Code(s): R00.0 - TACHYCARDIA, UNSPECIFIED Status: Chronic - Plan Plan: Acute toxic metabolic encephalopathy - Per ED report, patient was brought to EMS for confusion and generalized weakness - Patient alert and oriented x2 now. Was 3 on admission and deteriorated. Has improved since going on and subsequent weaning of BiPAP - Likely etiology was respiratory failure 2/2 COPD exacerbation - Flu A/B negative - Infection possible confounder. On abx for both UTI and COPD exacerbation COPD excacerbation. - Pt has improved since needing BiPAP. Currently sats 97% on 3L - on Levaquin and steroids - Continue duonebs - Chronic CO2 retainer . UA with positive nitrates, trace LE, and few WBC's - 50-75k CFU of klebsiella. Likely chronic colonization - Sensitive to levaquin that she is on for COPD exacerbation Physical deconditioning - Patient has HH with PT, but records indicate that she is not always compliant with PT - PT/OT to evaluate and treat Possible PUD - Patient with epigastric pain - Stable Hb - FOBT pending - Iron studies consistent with iron def anemai - Antacid added to medication regimen - Pt has not had a BM. Will add miralax Chronic anemia - Stable - Usually macrocytic - B12 and folate have been checked recently and were wnl - Iron low. Likely some iron deficiency. Will replace Chronic indwelling see catheter 2/2 retention - Changed out 2 days ago - Possible UTI as stated above Chronic respiratory failure with hypoxia - At baseline O2 which is 3L DM type II - Continue home medications - Mild SSI - ACHS accuchecks HLD - Continue home medications Sinus tachycardia - At baseline - EKG unchanged <Jose Recinos - Last Filed: 08/20/17 07:19> Attending Addendum - Attending Addendum Date/Time: 08/20/17 6929 I personally evaluated the patient and discussed the management with Dr. Recinos. I agree with the History, Examination, Assessment and Plan documented above with any addition or exceptions noted below. The patient is off bipap and sats are stable in 4L NC. Can likely move to the floor today. continue nebs, steroids and antibiotics. <Dee Dee Quinonez - Last Filed: 08/20/17 11:10>
[2017-08-20] MEDS: HumaLOG 300 UNITS/3 ML VIAL SC PRN ×3 (07:33→22:20)
[2017-08-20] MEDS: Famotidine/PF 20 mg/2ml Vial SLOW IVP SCH ×2 (08:55→21:38)
[2017-08-20] MEDS: Ferrous Sulfate 325 MG TAB PO SCH (08:55)
[2017-08-20] MEDS: Enoxaparin Sodium 40 MG/0.4 ML SYRINGE SC SCH (08:56)
[2017-08-20] MEDS: Polyethylene Glycol 3350 17 GM Packet PO SCH (08:57)
--- NOTE | 2017-08-20 12:06 | PRG ---
DATE OF SERVICE: 08/20/2017 SUBJECTIVE: The patient's BiPAP is off this morning. She is awake. She is conversant. PHYSICAL EXAMINATION: VITAL SIGNS: Temperature is 98.2, pulse 103, respirations 22, O2 sat 98% on 3 liters. HEENT: Unremarkable. NECK: No JVD. LUNGS: Clear, but distant breath sounds. CARDIAC: S1 and S2 regular. ABDOMEN: Soft. EXTREMITIES: No edema. ASSESSMENT: Chronic obstructive pulmonary disease with exacerbation. PLAN: The patient has improved with BiPAP therapy, steroids, and nebulization therapy. She should [place] em[place] [facility] Bi[place] therapy as needed. In the past, I have tried to set her up for a Trilog y ventilator at home to use as she has episodes like this frequently. Her insurance product is [employer] and may have refused to allow her to have this intervention at home.
[2017-08-20] MEDS ORDERED: INSULIN DETEMIR SC SCH (21:00)
[2017-08-20] MEDS: INSULIN DETEMIR SC SCH (21:37)
[2017-08-20] MEDS: Simvastatin 20 MG TAB PO SCH (21:38)
[2017-08-21] MEDS: Sodium Chloride 0.9% 1,000 ML IV SCH ×2 (02:16→13:58)
[2017-08-21] MEDS: HumaLOG 300 UNITS/3 ML VIAL SC PRN ×2 (06:42→17:04)
[2017-08-21] MEDS: Mometasone/Formoterol 120 PUFF INHALER INH SCH ×2 (06:52→23:08)
--- NOTE | 2017-08-21 07:05 | PDOC.FM ---
- Subjective Subjective: Pt doing well over night, there were no acute events. She has been on O2 by PA for 24 hours. Per nurse, it is unclear what her O2 need is at home, but per the family it 2-3 seems to be the norm. Today pt has no specific complains, she states that her breathing has improved. She denies SOB, cough, chest pain and all other symptoms in ROS. - Objective Vital Signs & Weight: Vital Signs (12 hours) Temp Pulse Resp BP Pulse Ox 08/21/17 06:50 119 H 20 99 08/21/17 03:54 97.8 F 118 H 18 143/78 H 100 08/21/17 03:41 95 08/20/17 23:36 97.8 F 118 H 18 151/70 H 100 08/20/17 23:18 96 08/20/17 20:00 97.8 F 118 H 18 146/78 H 96 08/20/17 19:13 97 08/20/17 19:12 97 08/20/17 19:10 97 Weight Weight 52.163 kg I&O: 08/20/17 08/21/17 08/22/17 06:59 06:59 06:59 Intake Total 2960 1515 Output Total 2300 1050 Balance 660 465 Result Diagrams: 08/19/17 04:23 08/19/17 04:23 <Jose Recinos - Last Filed: 08/21/17 07:02> - Objective Vital Signs & Weight: Vital Signs (12 hours) Temp Pulse Resp BP Pulse Ox 08/21/17 11:19 115 H 25 H 98 08/21/17 11:17 97.2 F L 118 H 22 H 162/82 H 95 08/21/17 11:16 117 H 20 97 08/21/17 07:55 97.5 F L 112 H 15 92 L 08/21/17 07:27 97.5 F L 112 H 15 115/91 H 99 08/21/17 06:50 119 H 20 99 08/21/17 03:54 97.8 F 118 H 18 143/78 H 100 08/21/17 03:41 95 Weight Weight 56.382 kg I&O: 08/20/17 08/21/17 08/22/17 06:59 06:59 06:59 Intake Total 2960 3415 Output Total 2300 2075 Balance 660 1340 Result Diagrams: 08/19/17 04:23 08/19/17 04:23 <CristianoDee Dee pyle - Last Filed: 08/21/17 13:53> Phys Exam - Physical Examination Constitutional: NAD HEENT: PERRLA, moist MMs Neck: no JVD, full ROM Mild wheezing in bases. Improved from yesterday Cardiovascular: no significant murmur Tachycardic Gastrointestinal: soft, non-tender Musculoskeletal: no edema Neurological: non-focal, moves all 4 limbs Psychiatric: normal affect Deviation from normal: A&O varies from 2-3 Skin: no rash <Jose Recinos - Last Filed: 08/21/17 07:02> Dx/Plan (1) COPD exacerbation Code(s): J44.1 - CHRONIC OBSTRUCTIVE PULMONARY DISEASE W (ACUTE) EXACERBATION Status: Chronic (2) Encephalopathy Code(s): G93.40 - ENCEPHALOPATHY, UNSPECIFIED Status: Acute (3) UTI (urinary tract infection) due to urinary indwelling See catheter Code(s): T83.511A - I/I REACT D/T INDWELLING URETHRAL CATHETER, INIT; N39.0 - URINARY TRACT INFECTION, SITE NOT SPECIFIED Status: Chronic QualifierTitle: Indwelling urinary catheter type: indwelling urethral catheter (4) Anemia Code(s): D64.9 - ANEMIA, UNSPECIFIED Status: Chronic QualifierTitle: Anemia type: iron deficiency (5) Weakness of both legs Code(s): M62.81 - MUSCLE WEAKNESS (GENERALIZED) Status: Chronic (6) Chronic respiratory failure with hypoxia Code(s): J96.11 - CHRONIC RESPIRATORY FAILURE WITH HYPOXIA Status: Chronic (7) DM type 2 (diabetes mellitus, type 2) Status: Chronic (8) HLD (hyperlipidemia) Code(s): E78.5 - HYPERLIPIDEMIA, UNSPECIFIED Status: Chronic (9) Physical deconditioning Code(s): R53.81 - OTHER MALAISE Status: Chronic (10) Tachycardia Code(s): R00.0 - TACHYCARDIA, UNSPECIFIED Status: Chronic - Plan Plan: Acute toxic metabolic encephalopathy - Per ED report, patient was brought to EMS for confusion and generalized weakness - Patient alert and oriented x2-3. - Likely etiology was respiratory failure 2/2 COPD exacerbation COPD excacerbation. - Improving O2 need. Currently on 2L - on Levaquin and steroids - Continue duonebs - Chronic CO2 retainer . UA with positive nitrates, trace LE, and few WBC's - 50-75k CFU of klebsiella. Likely chronic colonization - Sensitive to levaquin that she is on for COPD exacerbation Physical deconditioning - Patient has HH with PT, but records indicate that she is not always compliant with PT - PT/OT to evaluate and treat Possible PUD - Patient with epigastric pain - Stable Hb - FOBT pending - Iron studies consistent with iron def anemia - Antacid added to medication regimen - Pt has not had a BM. Miralax added yesterday, will add colace today. Consider enema tomorrow. Chronic anemia - Stable - Usually macrocytic - B12 and folate have been checked recently and were wnl - Iron low. Likely some iron deficiency. Will replace Chronic indwelling see catheter 2/2 retention - Changed out 2 days ago - Possible UTI as stated above Chronic respiratory failure with hypoxia - At baseline O2 which is 3L DM type II - Continue home medications - Mild SSI - ACHS accuchecks HLD - Continue home medications Sinus tachycardia - At baseline - EKG unchanged Dispo: Pt likely ready for the floor today. I would expect that she will be ready to discharge in the next 48 hours <Jose Recinos - Last Filed: 08/21/17 07:02> Attending Addendum - Attending Addendum Date/Time: 08/21/17 1352 I personally evaluated the patient and discussed the management with Dr. Recinos. I agree with the History, Examination, Assessment and Plan documented above with any addition or exceptions noted below. The patient was asleep and snoring this morning but I was able to shake her awake and she answered questions appropriately. Later in the morning she was less arousable and is now back on bipap. She did not use bipap overnight. Will consult palliative care as patient has end stage lung disease. <Dee Dee Quinonez - Last Filed: 08/21/17 13:53>
--- NOTE | 2017-08-21 10:15 | PRG ---
DATE OF SERVICE: 08/21/2017 PULMONARY AND CRITICAL CARE PROGRESS NOTE SUBJECTIVE: The patient is more somnolent today. Had difficult time arousing her. Her was at the bedside. PHYSICAL EXAMINATION: VITAL SIGNS: Temperature 97.5, pulse 112, respirations 15, O2 sat 92% on 3 liters. HEENT: Unremarkable. NECK: No JVD. LUNGS: Distant breath sounds. CARDIAC: S1 and S2 regular. ABDOMEN: Soft. EXTREMITIES: No edema. ASSESSMENT: 1. Chronic obstructive pulmonary disease exacerbation. 2. Chronic hypercapnic respiratory failure. 3. Severe deconditioning. PLAN: Placed the patient back on BiPAP. Continue steroids, nebulization treatments, and antibiotics . I really think we need to get palliative care involved in this case as I do not see this situation dramatically improving.
[2017-08-21] MEDS: Enoxaparin Sodium 40 MG/0.4 ML SYRINGE SC SCH (10:20)
[2017-08-21] MEDS: Ferrous Sulfate 325 MG TAB PO SCH (10:20)
[2017-08-21] MEDS: Famotidine/PF 20 mg/2ml Vial SLOW IVP SCH ×2 (10:20→20:46)
[2017-08-21] MEDS: Polyethylene Glycol 3350 17 GM Packet PO SCH (10:21)
[2017-08-21] MEDS: Docusate 100 MG CAP PO SCH ×2 (10:21→20:46)
[2017-08-21] MEDS: Acetaminophen 325 MG TAB PO PRN (17:03)
[2017-08-21] MEDS: Simvastatin 20 MG TAB PO SCH (20:46)
[2017-08-21] MEDS: INSULIN DETEMIR SC SCH (20:50)
[2017-08-21] MEDS ORDERED: Mometasone/Formoterol 120 PUFF INHALER INH SCH (21:00)
[2017-08-21] MEDS ORDERED: Non-Formulary Item 1 EACH (Fluticasone/Salmeterol [Advair Diskus 250/50] 1 INH) IH SCH (21:00)
[2017-08-22] MEDS: Sodium Chloride 0.9% 1,000 ML IV SCH (04:08)
[2017-08-22] MEDS: HumaLOG 300 UNITS/3 ML VIAL SC PRN ×2 (06:22→17:05)
--- NOTE | 2017-08-22 06:27 | PRG ---
DATE OF SERVICE: 08/22/2017 SUBJECTIVE: The patient has been on BiPAP most of the night after developing progressive hypercapnia yesterday. PHYSICAL EXAMINATION: VITAL SIGNS: Temperature 97.0, pulse 119, respirations 20, O2 sat 99% on 3 liters, blood pressure 15 0/73. HEENT: Unremarkable. NECK: No JVD. LUNGS: Poor air movement bilaterally. CARDIOVASCULAR: S1, S2 regular. ABDOMEN: Soft. EXTREMITIES: No edema. LABORATORY DATA: No new labs were obtained today. ASSESSMENT: 1. End-stage chronic obstructive pulmonary disease. 2. Chronic hypercapnic respiratory failure. 3. Severe deconditioning. PLAN: 1. We will try her off the BiPAP today and see how she does. 2. I am asking palliative care to see the patient and family that I think she is at the end of her l uday and is unlikely to improve with aggressive care. In the meantime, we are continuing steroids and nebulization treatments. Prognosis is very poor.
--- NOTE | 2017-08-22 07:29 | PDOC.FM ---
- Subjective Subjective: Feeling well this morning but is irritated with BiPAP. She states she still does not have an appetite and has not yet had a BM. - Objective MAR Reviewed: Yes Vital Signs & Weight: Vital Signs (12 hours) Temp Pulse Resp BP Pulse Ox 08/22/17 04:15 97.0 F L 119 H 20 150/73 H 99 08/22/17 02:36 98 08/22/17 00:00 97.0 F L 119 H 22 H 154/69 H 99 08/21/17 23:07 98 08/21/17 20:00 97.0 F L 119 H 22 H 154/69 H 99 08/21/17 19:35 98.0 F 121 H 21 H 141/63 H 99 Weight Weight 56.382 kg I&O: 08/21/17 08/22/17 08/23/17 06:59 06:59 06:59 Intake Total 3415 1650 Output Total 2075 900 Balance 1340 750 Result Diagrams: 08/19/17 04:23 08/19/17 04:23 <Ivis Medina - Last Filed: 08/22/17 08:12> - Objective Vital Signs & Weight: Vital Signs (12 hours) Temp Pulse Pulse Pulse Resp BP BP 08/22/17 10:41 111 H 17 08/22/17 09:21 128 H 127 H 170/88 H 146/78 H 08/22/17 08:45 116 H 08/22/17 08:00 97.0 F L 116 H 22 H 08/22/17 07:37 116 H 22 H 08/22/17 07:20 98.6 F 110 H 20 08/22/17 04:15 97.0 F L 119 H 20 08/22/17 02:36 08/22/17 00:00 97.0 F L 119 H 22 H BP Pulse Ox 08/22/17 10:41 100 08/22/17 09:21 08/22/17 08:45 08/22/17 08:00 98 08/22/17 07:37 98 08/22/17 07:20 135/74 98 08/22/17 04:15 150/73 H 99 08/22/17 02:36 98 08/22/17 00:00 154/69 H 99 Weight Weight 58.06 kg I&O: 08/21/17 08/22/17 08/23/17 06:59 06:59 06:59 Intake Total 3415 3750 Output Total 2075 2100 Balance 1340 1650 Result Diagrams: 08/19/17 04:23 08/19/17 04:23 <MegaGladys Sonia - Last Filed: 08/22/17 11:36> Phys Exam - Physical Examination Constitutional: NAD BiPAP in place HEENT: moist MMs, sclera anicteric Neck: supple diminished breath sounds on entire R side, no wheezing on rhonchi on L Cardiovascular: no significant murmur tachycardia Gastrointestinal: soft, non-tender, no distention, positive bowel sounds Musculoskeletal: no edema, pulses present Neurological: non-focal, moves all 4 limbs Psychiatric: normal affect Skin: normal turgor <Ivis Medina - Last Filed: 08/22/17 08:12> Dx/Plan (1) Acute on chronic respiratory failure with hypoxia and hypercapnia Code(s): J96.21 - ACUTE AND CHRONIC RESPIRATORY FAILURE WITH HYPOXIA; J96.22 - ACUTE AND CHRONIC RESPIRATORY FAILURE WITH HYPERCAPNIA Status: Acute (2) COPD (chronic obstructive pulmonary disease) Status: Acute QualifierTitle: COPD type: COPD with acute exacerbation Qualified Code(s) : J44.1 - Chronic obstructive pulmonary disease with (acute) exacerbation (3) COPD exacerbation Code(s): J44.1 - CHRONIC OBSTRUCTIVE PULMONARY DISEASE W (ACUTE) EXACERBATION Status: Chronic (4) Chronic indwelling See catheter Code(s): Z92.89 - PERSONAL HISTORY OF OTHER MEDICAL TREATMENT Status: Chronic (5) DM type 2 (diabetes mellitus, type 2) Status: Chronic (6) HLD (hyperlipidemia) Code(s): E78.5 - HYPERLIPIDEMIA, UNSPECIFIED Status: Chronic (7) IDDM (insulin dependent diabetes mellitus) Code(s): E11.9 - TYPE 2 DIABETES MELLITUS WITHOUT COMPLICATIONS; Z79.4 - SYSTEM MANAGER (CURRENT) USE OF INSULIN Status: Chronic (8) Physical deconditioning Code(s): R53.81 - OTHER MALAISE Status: Chronic - Plan Plan: 1. Acute toxic metabolic encephalopathy - Per ED report, patient was brought to EMS for confusion and generalized weakness - Patient alert and oriented x2-3. - Likely etiology was respiratory failure 2/2 COPD exacerbation 2. COPD excacerbation - BiPAP overnight, now on AVAPS - on Levaquin and steroids - Continue duonebs - Chronic CO2 retainer - Appreciate Dr. Sharp's assistance 3. UA with positive nitrates, trace LE, and few WBC's - 50-75k CFU of Klebsiella. Likely chronic colonization - Sensitive to Levaquin that she is on for COPD exacerbation 4. Physical deconditioning - Patient has HH with PT, but records indicate that she is not always compliant with PT - PT/OT to evaluate and treat 5. Possible PUD - Patient with epigastric pain intermittently - Stable Hgb - FOBT pending - Iron studies consistent with iron def anemia - Antacid added to medication regimen - Pt has not had a BM despite miralax and colace. Is not taking in much PO. - Consider enema today 6. Chronic anemia - Stable - Macrocytic - B12 and folate have been checked recently and were WNL - Iron low, replacing - FOBT if BM here, otherwise can be done outpatient 7. Chronic indwelling see catheter 2/2 retention - Changed out this hospitalization - Possible UTI as stated above tx with Levaquin 8. Chronic respiratory failure with hypoxia - At baseline O2 which is 3L 9. DM type II - Continue home medications - Mild SSI - ACHS accuchecks 10. HLD - Continue home medications 11. Sinus tachycardia - At baseline - EKG unchanged PPX: Lovenox, pepcid <Ivis Medina - Last Filed: 08/22/17 08:12> Attending Addendum - Attending Addendum Date/Time: 08/22/17 0914 I personally evaluated the patient and discussed the management with Dr. Medina I agree with the History, Examination, Assessment and Plan documented above with any addition or exceptions noted below. Acute on chronic hypercapnic and hypoxic resp failure End stage COPD with exaccerbation -Patient with poor prognosis. Her family is now discussing home BIPAP purchase. Continue current IMCU care with BIPAP prn, steroids, nebs, abx. <Gladys Ayoub - Last Filed: 08/22/17 11:36>
[2017-08-22] MEDS: Mometasone/Formoterol 120 PUFF INHALER INH SCH ×2 (07:37→18:25)
[2017-08-22] MEDS: Lisinopril 2.5 MG TAB PO SCH (08:45)
[2017-08-22] MEDS: Docusate 100 MG CAP PO SCH ×2 (08:45→20:34)
[2017-08-22] MEDS: Ferrous Sulfate 325 MG TAB PO SCH (08:45)
[2017-08-22] MEDS: Famotidine/PF 20 mg/2ml Vial SLOW IVP SCH ×2 (08:45→20:35)
[2017-08-22] MEDS: Polyethylene Glycol 3350 17 GM Packet PO SCH (08:45)
[2017-08-22] MEDS: Enoxaparin Sodium 40 MG/0.4 ML SYRINGE SC SCH (08:45)
[2017-08-22] MEDS ORDERED: Spiriva 18 MCG CAP (Box of 5 Caps) INH SCH (09:00)
[2017-08-22] MEDS: Simvastatin 20 MG TAB PO SCH (20:34)
[2017-08-22] MEDS: Acetaminophen 325 MG TAB PO PRN (20:34)
[2017-08-22] MEDS: INSULIN DETEMIR SC SCH (21:40)
[2017-08-23] MEDS: HumaLOG 300 UNITS/3 ML VIAL SC PRN (05:15)
[2017-08-23] MEDS: Mometasone/Formoterol 120 PUFF INHALER INH SCH ×2 (06:29→18:42)
--- NOTE | 2017-08-23 06:42 | PDOC.FM ---
- Subjective Subjective: Feeling well this morning and denies any pain. She slept comfortably on BiPAP. She is straining to have BM this morning and requesting an enema. - Objective MAR Reviewed: Yes Vital Signs & Weight: Vital Signs (12 hours) Temp Pulse Resp BP Pulse Ox 08/23/17 06:30 113 H 21 H 98 08/23/17 04:16 97.3 F L 114 H 16 122/50 L 96 08/23/17 02:22 129 H 20 95 08/23/17 00:05 98.1 F 134 H 22 H 172/72 H 96 08/22/17 22:14 119 H 20 95 08/22/17 22:13 124 H 17 95 08/22/17 20:35 98.4 F 131 H 19 166/63 H 98 Weight Weight 58.06 kg I&O: 08/21/17 08/22/17 08/23/17 06:59 06:59 06:59 Intake Total 3415 3750 1770 Output Total 2075 2100 3200 Balance 1340 1650 -1430 Result Diagrams: 08/19/17 04:23 08/19/17 04:23 <Ivis Medina E - Last Filed: 08/23/17 07:17> - Objective Vital Signs & Weight: Vital Signs (12 hours) Temp Pulse Pulse Pulse Resp BP BP 08/23/17 14:18 112 H 23 H 08/23/17 14:17 111 H 23 H 08/23/17 12:00 98.4 F 121 H 26 H 08/23/17 10:12 116 H 26 H 08/23/17 09:48 110 H 116 H 151/74 H 08/23/17 09:20 123 H 118 H 155/66 H 08/23/17 08:00 97.6 F 116 H 26 H 164/79 H 08/23/17 06:30 113 H 21 H 08/23/17 04:16 97.3 F L 114 H 16 BP BP Pulse Ox Pulse Ox Pulse Ox 08/23/17 14:18 99 08/23/17 14:17 08/23/17 12:00 161/76 H 96 08/23/17 10:12 08/23/17 09:48 150/76 H 97 97 08/23/17 09:20 152/70 H 94 L 97 08/23/17 08:00 149/78 H 97 08/23/17 06:30 98 08/23/17 04:16 122/50 L 96 Weight Weight 58.06 kg I&O: 08/22/17 08/23/17 08/24/17 06:59 06:59 06:59 Intake Total 3750 1770 Output Total 2100 3200 Balance 1650 -1430 Result Diagrams: 08/19/17 04:23 08/19/17 04:23 <Gladys Ayoub - Last Filed: 08/23/17 14:46> Phys Exam - Physical Examination Constitutional: NAD BiPAP in place Neck: supple Respiratory: no wheezing, clear to auscultation bilateral diminished air entry at bases Cardiovascular: no significant murmur intermittently tachycardic Gastrointestinal: soft, non-tender, no distention, positive bowel sounds Musculoskeletal: no edema, pulses present Neurological: non-focal, moves all 4 limbs Psychiatric: normal affect, A&O x 3 Skin: no rash <Ivis Medina - Last Filed: 08/23/17 07:17> Dx/Plan (1) Acute on chronic respiratory failure with hypoxia and hypercapnia Code(s): J96.21 - ACUTE AND CHRONIC RESPIRATORY FAILURE WITH HYPOXIA; J96.22 - ACUTE AND CHRONIC RESPIRATORY FAILURE WITH HYPERCAPNIA Status: Acute (2) COPD (chronic obstructive pulmonary disease) Status: Acute QualifierTitle: COPD type: COPD with acute exacerbation Qualified Code(s) : J44.1 - Chronic obstructive pulmonary disease with (acute) exacerbation (3) COPD exacerbation Code(s): J44.1 - CHRONIC OBSTRUCTIVE PULMONARY DISEASE W (ACUTE) EXACERBATION Status: Chronic (4) Chronic indwelling See catheter Code(s): Z92.89 - PERSONAL HISTORY OF OTHER MEDICAL TREATMENT Status: Chronic (5) DM type 2 (diabetes mellitus, type 2) Status: Chronic (6) HLD (hyperlipidemia) Code(s): E78.5 - HYPERLIPIDEMIA, UNSPECIFIED Status: Chronic (7) IDDM (insulin dependent diabetes mellitus) Code(s): E11.9 - TYPE 2 DIABETES MELLITUS WITHOUT COMPLICATIONS; Z79.4 - INTERMEDIATE (CURRENT) USE OF INSULIN Status: Chronic (8) Physical deconditioning Code(s): R53.81 - OTHER MALAISE Status: Chronic - Plan Plan: 1. Acute toxic metabolic encephalopathy, resolved - Per ED report, patient was brought to EMS for confusion and generalized weakness - Patient alert and oriented x2-3. - Likely etiology was respiratory failure 2/2 COPD exacerbation 2. COPD excacerbation - BiPAP overnight, now on AVAPS - On Levaquin and steroids - Continue duonebs - Chronic CO2 retainer - Appreciate Dr. Sharp's assistance 3. UA with positive nitrates, trace LE, and few WBC's - 50-75k CFU of Klebsiella. Likely chronic colonization - Sensitive to Levaquin that she is on for COPD exacerbation 4. Physical deconditioning - Patient has HH with PT, but records indicate that she is not always compliant with PT - PT/OT to evaluate and treat 5. Possible PUD - Patient with epigastric pain intermittently - Stable Hgb - FOBT pending - Iron studies consistent with iron def anemia - Antacid added to medication regimen - Pt has not had a BM despite miralax and colace. Is not taking in much PO. - Enema today to aid with symptomatic constipation 6. Chronic anemia - Stable - Macrocytic - B12 and folate have been checked recently and were WNL - Iron low, replacing - FOBT if BM here, otherwise can be done outpatient 7. Chronic indwelling see catheter 2/2 retention - Changed out this hospitalization - Possible UTI as stated above tx with Levaquin 8. Chronic respiratory failure with hypoxia - At baseline O2 which is 3L 9. DM type II - Continue home medications - Mild SSI - ACHS accuchecks 10. HLD - Continue home medications 11. Sinus tachycardia - At baseline - EKG unchanged PPX: Lovenox, pepcid Dispo: Greatly appreciate Dr. Sharp and Palliative care assistance. Patient unable to function at home without BiPAP and it is unclear if family is prepared to help with retail presentation specialist care needs. Patient may be appropriate for inpatient or home hospice and I appreciate case management assistance with arranging/providing options and arranging home BiPAP in the meantime which family is prepared to try to pay for out of pocket if need-be. <Ivis Medina E - Last Filed: 08/23/17 07:17> Attending Addendum - Attending Addendum Date/Time: 08/23/17 8559 I personally evaluated the patient and discussed the management with Dr. Medina I agree with the History, Examination, Assessment and Plan documented above with any addition or exceptions noted below. Acute on chronic hypoxic and hypercapnic resp failure End stage COPD with exacerbation -Palliative care to have family discussion about goals. Patient is not weanable off bipap at this time. <Gladys Ayoub - Last Filed: 08/23/17 14:46>
[2017-08-23] MEDS ORDERED: Fleet Enema 133 ML BOT PR SCH (07:00)
[2017-08-23] MEDS: Ferrous Sulfate 325 MG TAB PO SCH (08:00)
[2017-08-23] MEDS: Enoxaparin Sodium 40 MG/0.4 ML SYRINGE SC SCH (08:00)
[2017-08-23] MEDS: Polyethylene Glycol 3350 17 GM Packet PO SCH (08:00)
[2017-08-23] MEDS: Lisinopril 2.5 MG TAB PO SCH (08:00)
[2017-08-23] MEDS: Docusate 100 MG CAP PO SCH ×2 (08:00→20:49)
[2017-08-23] MEDS: Famotidine/PF 20 mg/2ml Vial SLOW IVP SCH ×2 (08:01→20:48)
--- NOTE | 2017-08-23 08:29 | PRG ---
DATE OF SERVICE: 08/23/2017 The patient is off the BiPAP this morning. She is still struggling to breathe. PHYSICAL EXAMINATION: VITAL SIGNS: Temperature 97.3, pulse 113, blood pressure 164/79, O2 sat 98%. HEENT: Unremarkable. NECK: No JVD. LUNGS: Poor air movement without active wheezing. CARDIAC: S1 and S2 regular. ABDOMEN: Soft. EXTREMITIES: No edema. LABORATORY DATA: No labs were done today. ASSESSMENT: End-stage chronic obstructive pulmonary disease with exacerbation. PLAN: The patient needs hospice care as I do not think that the situation is reversible. She can go home with a Trilogy type ventilator if her insurance would be willing to pay for it. She is in no s hape to where she could undergo a sleep study as there is no nursing care available at the sleep lab.
[2017-08-23] MEDS: Simvastatin 20 MG TAB PO SCH (20:49)
[2017-08-23] MEDS: Acetaminophen 325 MG TAB PO PRN (20:49)
[2017-08-23] MEDS: INSULIN DETEMIR SC SCH (20:54)
[2017-08-24] MEDS: HumaLOG 300 UNITS/3 ML VIAL SC PRN ×4 (05:49→20:13)
[2017-08-24] MEDS: Mometasone/Formoterol 120 PUFF INHALER INH SCH ×2 (06:09→18:22)
--- NOTE | 2017-08-24 06:46 | PDOC.FM ---
- Subjective Subjective: Feeling ok this morning. She is asking for water and wants the BiPAP immediately back on. Nurse states she did ok off of it on 3L while she ate dinner and did not desaturate but was not comfortable for long without it. No other issues overnight. - Objective MAR Reviewed: Yes Vital Signs & Weight: Vital Signs (12 hours) Temp Pulse Resp BP Pulse Ox 08/24/17 06:13 100 08/24/17 06:11 94 17 100 08/24/17 05:01 95 15 99 08/24/17 04:00 98 F 103 H 16 138/85 96 08/24/17 02:03 99 17 98 08/24/17 02:00 98 08/24/17 00:17 108 H 17 97 08/24/17 00:00 110 H 17 161/74 H 97 08/23/17 22:15 112 H 20 97 08/23/17 20:00 98.8 F 123 H 25 H 151/72 H 95 08/23/17 19:25 98.8 F 122 H 18 98 Weight Weight 58.06 kg I&O: 08/22/17 08/23/17 08/24/17 06:59 06:59 06:59 Intake Total 3750 1770 Output Total 2100 3200 2450 Balance 1650 -1430 -2450 Result Diagrams: 08/19/17 04:23 08/19/17 04:23 <Ivis Medina E - Last Filed: 08/24/17 08:55> - Objective Vital Signs & Weight: Vital Signs (12 hours) Temp Pulse Resp BP Pulse Ox 08/24/17 09:31 107 H 18 99 08/24/17 08:14 94 08/24/17 08:00 97.6 F 107 H 18 165/90 H 99 08/24/17 06:13 100 08/24/17 06:11 94 17 100 08/24/17 05:01 95 15 99 08/24/17 04:00 98 F 103 H 16 138/85 96 08/24/17 02:03 99 17 98 08/24/17 02:00 98 08/24/17 00:17 108 H 17 97 Weight Weight 54.93 kg I&O: 08/23/17 08/24/17 08/25/17 06:59 06:59 06:59 Intake Total 1770 450 240 Output Total 3200 4000 Balance -1430 -3550 240 Result Diagrams: 08/19/17 04:23 08/19/17 04:23 <Gladys Ayoub - Last Filed: 08/24/17 12:11> Phys Exam - Physical Examination Constitutional: NAD HEENT: sclera anicteric poor dentition, slightly dry MM Neck: supple Respiratory: no wheezing diminished breath sounds BL Cardiovascular: RRR, no significant murmur Gastrointestinal: soft, non-tender, no distention, positive bowel sounds Musculoskeletal: no edema, pulses present Neurological: non-focal, moves all 4 limbs Psychiatric: normal affect, A&O x 3 Skin: normal turgor <Ivis Medina - Last Filed: 08/24/17 08:55> Dx/Plan (1) Acute on chronic respiratory failure with hypoxia and hypercapnia Code(s): J96.21 - ACUTE AND CHRONIC RESPIRATORY FAILURE WITH HYPOXIA; J96.22 - ACUTE AND CHRONIC RESPIRATORY FAILURE WITH HYPERCAPNIA Status: Acute (2) COPD (chronic obstructive pulmonary disease) Status: Acute QualifierTitle: COPD type: COPD with acute exacerbation Qualified Code(s) : J44.1 - Chronic obstructive pulmonary disease with (acute) exacerbation (3) COPD exacerbation Code(s): J44.1 - CHRONIC OBSTRUCTIVE PULMONARY DISEASE W (ACUTE) EXACERBATION Status: Chronic (4) Chronic indwelling See catheter Code(s): Z92.89 - PERSONAL HISTORY OF OTHER MEDICAL TREATMENT Status: Chronic (5) DM type 2 (diabetes mellitus, type 2) Status: Chronic (6) HLD (hyperlipidemia) Code(s): E78.5 - HYPERLIPIDEMIA, UNSPECIFIED Status: Chronic (7) IDDM (insulin dependent diabetes mellitus) Code(s): E11.9 - TYPE 2 DIABETES MELLITUS WITHOUT COMPLICATIONS; Z79.4 - CUSTODIAL (CURRENT) USE OF INSULIN Status: Chronic (8) Physical deconditioning Code(s): R53.81 - OTHER MALAISE Status: Chronic - Plan Plan: 1. COPD excacerbation - BiPAP/AVAPS most of the time - On Levaquin (08/19) and steroids (weaning per Dr. Sharp) - Continue duonebs - Chronic CO2 retainer - Appreciate Dr. Sharp's assistance 2. UA with positive nitrates, trace LE, and few WBC's - 50-75k CFU of Klebsiella. Likely chronic colonization - Sensitive to Levaquin that she is on for COPD exacerbation 3. Physical deconditioning - Patient has HH with PT - PT/OT to evaluate and treat 4. Possible PUD - Patient with epigastric pain intermittently - Stable Hgb - FOBT pending - Iron studies consistent with iron def anemia - Antacid added to medication regimen - Pt has not had a BM despite miralax and colace. Is not taking in much PO. 5. Chronic anemia - Stable - Macrocytic - B12 and folate have been checked recently and were WNL - Iron low, replacing - FOBT if BM here, otherwise can be done outpatient 7. Chronic indwelling see catheter 2/2 retention - Changed out this hospitalization - Possible UTI as stated above tx with Levaquin 8. Chronic respiratory failure with hypoxia - At baseline O2 which is 3L 9. DM type II - Continue home medications - Mild SSI - ACHS accuchecks 10. HLD - Continue home medications 11. Sinus tachycardia - At baseline - EKG unchanged PPX: Lovenox, pepcid Dispo: Greatly appreciate Dr. Sharp and Palliative care assistance. Patient unable to function at home without BiPAP/non-invasive ventilation and it is unclear if family is prepared to help with timekeeper care needs. Patient may be appropriate for inpatient or home hospice and I appreciate case management assistance with arranging/providing options and arranging home BiPAP/non- invasive ventilation in the meantime which family is prepared to try to pay for out of pocket if need-be. Inpatient hospice consulted and hope for meeting with family this morning. <Ivis Medina - Last Filed: 08/24/17 08:55> Attending Addendum - Attending Addendum Date/Time: 08/24/17 1120 I personally evaluated the patient and discussed the management with Dr. Medina I agree with the History, Examination, Assessment and Plan documented above with any addition or exceptions noted below. Acute on chronic hypoxic and hypercapnic respiratory failure- requiring BIPAP most of the time End stage COPD- - Hospice evaluation this afternoon. Options include inpt hospice, home with hospice or attempt for home BIPAP. <Gladys Ayoub Sonia - Last Filed: 08/24/17 12:11>
[2017-08-24] MEDS: Docusate 100 MG CAP PO SCH ×2 (08:14→20:11)
[2017-08-24] MEDS: Lisinopril 2.5 MG TAB PO SCH (08:14)
[2017-08-24] MEDS: Ferrous Sulfate 325 MG TAB PO SCH (08:14)
[2017-08-24] MEDS: Famotidine/PF 20 mg/2ml Vial SLOW IVP SCH ×2 (08:15→20:17)
[2017-08-24] MEDS: Enoxaparin Sodium 40 MG/0.4 ML SYRINGE SC SCH (08:15)
[2017-08-24] MEDS: Polyethylene Glycol 3350 17 GM Packet PO SCH (08:15)
--- NOTE | 2017-08-24 08:34 | PDOC.PULPN ---
Progress Note: Subj/Obj - Subjective Date: 08/24/17 Time: 08:32 Narrative: Says she knows she is about to - ROS Respiratory: short of breath - Objective Allergies/Adverse Reactions: Allergies Allergy/AdvReac Type Severity Reaction Status Date / Time No Known Drug Allergies Allergy Verified 08/19/17 06:53 MAR Reviewed: Yes Vital Signs: Vital Signs Temp 98 F 08/24/17 04:00 Pulse 94 08/24/17 08:14 Resp 17 08/24/17 06:11 BP 138/85 08/24/17 04:00 Pulse Ox 100 08/24/17 06:13 Intake & Output 08/23/17 08/24/17 08/24/17 18:59 06:59 18:59 Output Total 2450 Balance -2450 Output: Output, Scruggs 2450 Other: Voiding Method Indwelling Catheter Indwelling Catheter Progress Note: Exam - Physical Exam Constitutional: NAD HEENT: PERRLA Neck: no nodes, no JVD Cardiovascular: RRR Focused Respiratory Location: decreased breath sounds: Right, Left Gastrointestinal: soft, non-tender Musculoskeletal: pulses present Neurological: non-focal Lymphatic: no nodes Psychiatric: normal affect, A&O x 3 Skin: no rash Progress Note: Data - Labs Result Diagrams: 08/19/17 04:23 08/19/17 04:23 Progress Note: A/P - Problems (1) Acute on chronic respiratory failure with hypoxia and hypercapnia Current Visit: No Status: Acute Code(s): J96.21 - ACUTE AND CHRONIC RESPIRATORY FAILURE WITH HYPOXIA; J96.22 - ACUTE AND CHRONIC RESPIRATORY FAILURE WITH HYPERCAPNIA (2) COPD (chronic obstructive pulmonary disease) Current Visit: No Status: Acute Qualifiers: COPD type: COPD with acute exacerbation Qualified Code(s): J44.1 - Chronic obstructive pulmonary disease with (acute) exacerbation (3) Encephalopathy Current Visit: No Status: Acute Code(s): G93.40 - ENCEPHALOPATHY, UNSPECIFIED - Plan Plan: Agree with palliative/hospice care. Patient unlikely to return to her previous level of function. Home trilogy ventilator is another option, but insurance has denied in past. Wean steroids. Spoke with family.
[2017-08-24] MEDS: Simvastatin 20 MG TAB PO SCH (20:11)
[2017-08-24] MEDS: INSULIN DETEMIR SC SCH (20:13)
[2017-08-24] MEDS: Acetaminophen 325 MG TAB PO PRN (22:28)
[2017-08-25] MEDS: HumaLOG 300 UNITS/3 ML VIAL SC PRN (03:50)
[2017-08-25] MEDS: Mometasone/Formoterol 120 PUFF INHALER INH SCH ×2 (08:11→18:44)
--- NOTE | 2017-08-25 08:43 | PDOC.PULPN ---
Progress Note: Subj/Obj - Subjective Date: 08/25/17 Time: 08:42 Narrative: about the same - Objective Allergies/Adverse Reactions: Allergies Allergy/AdvReac Type Severity Reaction Status Date / Time No Known Drug Allergies Allergy Verified 08/19/17 06:53 MAR Reviewed: Yes Vital Signs: Vital Signs Temp 98.0 F 08/25/17 07:26 Pulse 105 H 08/25/17 08:13 Resp 19 08/25/17 08:13 BP 149/67 H 08/25/17 07:26 Pulse Ox 98 08/25/17 08:13 Intake & Output 08/24/17 08/25/17 08/25/17 18:59 06:59 18:59 Intake Total 480 586 Output Total 2250 950 Balance -1770 -364 Weight 117 lb 9.6 oz Intake: Intake, IV Amount 106 Oral 480 480 Output: Urine 950 Output, Scruggs 2250 Other: Voiding Method Indwelling Catheter Indwelling Catheter Progress Note: Exam - Physical Exam Constitutional: NAD HEENT: PERRLA, sclera anicteric Neck: no nodes, supple Cardiovascular: RRR Respiratory: clear to auscultation bilaterally Gastrointestinal: soft, no distention Musculoskeletal: no edema Neurological: non-focal Psychiatric: normal affect, A&O x 3 Skin: no rash Progress Note: Data - Labs Result Diagrams: 08/19/17 04:23 08/19/17 04:23 Progress Note: A/P - Problems (1) Acute on chronic respiratory failure with hypoxia and hypercapnia Current Visit: No Status: Acute Code(s): J96.21 - ACUTE AND CHRONIC RESPIRATORY FAILURE WITH HYPOXIA; J96.22 - ACUTE AND CHRONIC RESPIRATORY FAILURE WITH HYPERCAPNIA (2) COPD (chronic obstructive pulmonary disease) Current Visit: No Status: Acute Qualifiers: COPD type: COPD with acute exacerbation Qualified Code(s): J44.1 - Chronic obstructive pulmonary disease with (acute) exacerbation (3) Encephalopathy Current Visit: No Status: Acute Code(s): G93.40 - ENCEPHALOPATHY, UNSPECIFIED - Plan Plan: transfer to hospice planned for today continuing nebs, etc.
[2017-08-25] MEDS: Famotidine/PF 20 mg/2ml Vial SLOW IVP SCH (09:02)
[2017-08-25] MEDS: Lisinopril 2.5 MG TAB PO SCH (09:02)
[2017-08-25] MEDS: Ferrous Sulfate 325 MG TAB PO SCH (09:03)
[2017-08-25] MEDS: Docusate 100 MG CAP PO SCH (09:03)
[2017-08-25] MEDS: Enoxaparin Sodium 40 MG/0.4 ML SYRINGE SC SCH (09:04)
[2017-08-25] MEDS: Polyethylene Glycol 3350 17 GM Packet PO SCH (09:04)
--- NOTE | 2017-08-25 09:50 | PDOC.FM ---
- Subjective Subjective: Comfortable on BiPAP this morning. Family at bedside. Plan to move to [facility] later today. Ms. Shanks is feeling ok today and is requesting tacos and a hamburger. Her only complaint is intermittent thirst while the BiPAP machine is on. - Objective MAR Reviewed: Yes Vital Signs & Weight: Vital Signs (12 hours) Temp Pulse Resp BP Pulse Ox 08/25/17 09:02 105 H 08/25/17 08:13 105 H 19 98 08/25/17 08:11 99 16 97 08/25/17 07:52 99 16 97 08/25/17 07:50 97 08/25/17 07:26 98.0 F 92 15 149/67 H 99 08/25/17 03:41 97 F L 101 H 16 147/58 H 99 08/25/17 01:41 105 H 16 97 08/24/17 23:57 97.3 F L 112 H 12 151/63 H 96 08/24/17 23:54 97 08/24/17 23:53 116 H 20 96 Weight Weight 53.342 kg I&O: 08/24/17 08/25/17 08/26/17 06:59 06:59 06:59 Intake Total 450 1066 Output Total 4000 3200 Balance -2858 -2457 Result Diagrams: 08/19/17 04:23 08/19/17 04:23 <Ivis Medina E - Last Filed: 08/25/17 09:49> - Objective Vital Signs & Weight: Vital Signs (12 hours) Temp Pulse Resp BP Pulse Ox 08/25/17 11:31 98.0 F 109 H 20 156/69 H 98 08/25/17 11:21 111 H 20 98 08/25/17 09:02 105 H 08/25/17 08:21 98.0 F 92 15 98 08/25/17 08:13 105 H 19 98 08/25/17 08:11 99 16 97 08/25/17 07:52 99 16 97 08/25/17 07:50 97 08/25/17 07:26 98.0 F 92 15 149/67 H 99 08/25/17 03:41 97 F L 101 H 16 147/58 H 99 Weight Weight 53.342 kg I&O: 08/24/17 08/25/17 08/26/17 06:59 06:59 06:59 Intake Total 450 1066 Output Total 4000 3200 Balance -4740 -0443 Result Diagrams: 08/19/17 04:23 08/19/17 04:23 <Gladys Ayoub - Last Filed: 08/25/17 14:09> Phys Exam - Physical Examination Constitutional: NAD dry MM, poor dentition, BiPAP in place Neck: supple Respiratory: no wheezing diminished breath sounds BL Cardiovascular: no significant murmur tachycardic Gastrointestinal: soft, non-tender, no distention, positive bowel sounds Musculoskeletal: no edema, pulses present Neurological: non-focal, moves all 4 limbs Psychiatric: normal affect, A&O x 3 Skin: normal turgor <Ivis Medina - Last Filed: 08/25/17 09:49> Dx/Plan (1) Acute on chronic respiratory failure with hypoxia and hypercapnia Code(s): J96.21 - ACUTE AND CHRONIC RESPIRATORY FAILURE WITH HYPOXIA; J96.22 - ACUTE AND CHRONIC RESPIRATORY FAILURE WITH HYPERCAPNIA Status: Acute (2) COPD (chronic obstructive pulmonary disease) Status: Acute QualifierTitle: COPD type: COPD with acute exacerbation Qualified Code(s) : J44.1 - Chronic obstructive pulmonary disease with (acute) exacerbation (3) COPD exacerbation Code(s): J44.1 - CHRONIC OBSTRUCTIVE PULMONARY DISEASE W (ACUTE) EXACERBATION Status: Chronic (4) Chronic indwelling See catheter Code(s): Z92.89 - PERSONAL HISTORY OF OTHER MEDICAL TREATMENT Status: Chronic (5) DM type 2 (diabetes mellitus, type 2) Status: Chronic (6) HLD (hyperlipidemia) Code(s): E78.5 - HYPERLIPIDEMIA, UNSPECIFIED Status: Chronic (7) IDDM (insulin dependent diabetes mellitus) Code(s): E11.9 - TYPE 2 DIABETES MELLITUS WITHOUT COMPLICATIONS; Z79.4 - SNF (CURRENT) USE OF INSULIN Status: Chronic (8) Physical deconditioning Code(s): R53.81 - OTHER MALAISE Status: Chronic - Plan Plan: 1. COPD excacerbation - BiPAP/AVAPS most of the time - On Levaquin (08/19) and steroids (weaning per Dr. Sharp) - Will D/C levaquin today - Continue duonebs - Chronic CO2 retainer - Appreciate Dr. Sharp's assistance 2. UA with positive nitrates, trace LE, and few WBC's - 50-75k CFU of Klebsiella. Likely chronic colonization - Sensitive to Levaquin that she is on for COPD exacerbation - Will stop levaquin today 3. Physical deconditioning - PT in house, can D/C 4. Possible PUD - Patient with epigastric pain intermittently - Stable Hgb - FOBT pending - Iron studies consistent with iron def anemia - Antacid added to medication regimen 5. Chronic anemia - Stable - Macrocytic - B12 and folate have been checked recently and were WNL - Iron low, replacing 7. Chronic indwelling see catheter 2/2 retention - Changed out this hospitalization - Possible UTI as stated above tx with Levaquin 8. Chronic respiratory failure with hypoxia - At baseline O2 which is 3L and BIPAP for comfort 9. DM type II - Continue home medications - Mild SSI - Will D/C accuchecks as we anticipate transfer to hospice today 10. HLD - Continue home medications 11. Sinus tachycardia - At baseline - EKG unchanged PPX: Lovenox, pepcid Dispo: Greatly appreciate Dr. Sharp and Palliative care assistance. Patient qualifies for inpatient hospice and plan to transfer to [facility] today. Will D/C most medications and accuchecks in anticipation of transfer. Family at bedside and all questions answered at this time. <Ivis Medina - Last Filed: 08/25/17 09:49> Attending Addendum - Attending Addendum Date/Time: 08/25/17 1130 I personally evaluated the patient and discussed the management with Dr. Medina I agree with the History, Examination, Assessment and Plan documented above with any addition or exceptions noted below. Chronic hypoxic and hypercapneic respiratory failure secondary to end stage COPD - transfer to inpatient hospice today. <Gladys Ayoub - Last Filed: 08/25/17 14:09>
[2017-08-25 15:23] VITALS: BP 148/70; TEMP 98.9
--- NOTE | 2017-08-26 14:43 | DIS-2 ---
DATE OF ADMISSION: 08/18/2017 DATE OF DISCHARGE: 08/25/2017 RESIDENT: Ivis Medina M.D. ADMITTING ATTENDING: Adriana Lopez M.D. DISCHARGE ATTENDING: Gladys Ayoub M.D. CONSULTS: Dr. Sharp with Pulmonology. PROCEDURES: Chest x-ray (08/18/2017): No acute abnormality. Brain CT (08/18/2017): Stable chronic findings as above. No intracranial hemorrhage seen. PRIMARY DIAGNOSIS: End-stage chronic obstructive pulmonary disease. SECONDARY DIAGNOSES: 1. Acute on chronic respiratory failure with hypoxia and hypercapnia. 2. Chronic obstructive pulmonary disease. 3. Encephalopathy, resolved. 4. Chronic indwelling Scruggs catheter. 5. Type 2 diabetes mellitus, on insulin. 6. Hyperlipidemia. 7. Physical deconditioning. DISCHARGE MEDICATIONS: Patient will receive symptomatic medications p.r.n. per inpatient hospice. S he has no clinical medications, on which she is being discharged specifically. DISCONTINUED MEDICATIONS: 1. Seroquel 25 mg p.o. at bedtime. 2. Pioglitazone 30 mg p.o. daily. 3. Dulera 2 puffs inhaled b.i.d. 4. Advair 1 puff inhaled b.i.d. 5. ProAir 0.5 mg inhaled p.r.n. 6. Acetaminophen 650 mg p.o. q.4 h. p.r.n. 7. Lantus 20 units subcutaneous q.a.m. 8. Lantus 20 units subcu q.p.m. 9. Spiriva 18 mcg inhaled daily. 10. Simvastatin 20 mg p.o. q.p.m. 11. Aspirin 81 mg p.o. daily. HISTORY OF PRESENT ILLNESS/HOSPITAL COURSE: Ms. Shanks presented with chief complaint of confu tuan and tremor and weakness. She has a known history of COPD as well as a chronic indwelling Scruggs catheter and sinus tachycardia. She was admitted to the hospital with acute toxic metabolic encephal opathy and started on broad spectrum antibiotics. She remained stable throughout the hospitalization ; however, the patient's chronic COPD is noted to be end stage and she did not tolerate time off of B iPAP machine. Other medical conditions remained stable throughout hospitalization. However, her poo r prognosis was discussed with the critical care team as well as the primary team and entire family. Multiple family meetings were held and the family and patient decided together to make patient DNR a s well as decision her for inpatient hospice as her is not felt he could adequately take care of her at home and they did not want to proceed with home hospice. [facility] met with patient and family and she was accepted under their care. She is being discharged to [facility] hosp[facility]. We are happy to provide any further assistance we can. DISPOSITION: Guarded. DISCHARGE INSTRUCTIONS: 1. Location: [facility]. 2. Diet: Per hospice recommendations. 3. Activity: Per hospice recommendations. 4. Followup: Per hospice recommendations.
== END 2017-08-25 07:55 | disposition hospice, inpatient (51) | DRG 189 ==
LOC: ERS 18:45 → T4-A 21:31 → OBSVTOIN 21:31 → IMCU/EMU 08-19 09:15
PROVIDERS: ADMIT Student in an Organized Health Care Education/Training Program; ATTEND Student in an Organized Health Care Education/Training Program
PROC: 5A09557 Assistance with Respiratory Ventilation, Greater than 96 Consecutive Hours, Continuous Positive Airway Pressure (ICD-10-PCS; principal; 2017-08-19)
DX: J96.22 Acute and chronic respiratory failure with hypercapnia (principal); G92 Toxic encephalopathy; I27.23 Pulmonary hypertension due to lung diseases and hypoxia; Z99.81 Dependence on supplemental oxygen; J44.1 Chronic obstructive pulmonary disease with (acute) exacerbation; T83.511A Infection and inflammatory reaction due to indwelling urethral catheter, initial encounter; E11.9 Type 2 diabetes mellitus without complications; D50.9 Iron deficiency anemia, unspecified; D53.9 Nutritional anemia, unspecified; J96.21 Acute and chronic respiratory failure with hypoxia; E78.5 Hyperlipidemia, unspecified; R62.7 Adult failure to thrive; Z51.5 Encounter for palliative care; Z96.0 Presence of urogenital implants; Z79.4 Long term (current) use of insulin; R33.9 Retention of urine, unspecified; R00.0 Tachycardia, unspecified; Z22.39 Carrier of other specified bacterial diseases; Z87.891 Personal history of nicotine dependence; R19.5 Other fecal abnormalities; R10.13 Epigastric pain
CPT/HCPCS: 36415; 36416; 70450; 71045; 80048; 80053; 81003; 81015; 82274; 82553; 82728; 82805; 83540; 83550; 83605; 84145; 84484; 85025; 87040; 87077; 87086; 87186; 93005; 94640; 94660; 94760; 96360; G8978-GP-CM; G8979-GP-CJ; G8987-GO-CL; G8987-GO-CN; G8988-GO-CJ; G8988-GO-CL; J0696; J1650; J1815; J7050; J7620; S0028